=== PATIENT | female | born 2000 | race Caucasian/White ===

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

== ENCOUNTER 2020-06-18 17:31 | Emergency (ER) | payer MEDICAID, SELFPAY ==
[2020-06-18 17:39] VITALS: BP 112/74; PULSE 109; RESP 17; TEMP 37.1; O2SAT 98; BMI 20.1
[2020-06-18 18:03] VITALS: BP 112/72; PULSE 108; RESP 14; TEMP 36.9; O2SAT 99; BMI 20.1
[2020-06-18 18:08] LABS: UTC Strep Screen (Rapid) Positive (Negative)
--- NOTE | 2020-06-18 18:11 | HMH.EDUTC ---
[facility] [place] Disposition Clinical Impression: Strep throat UTI (urinary tract infection) Qualifiers: Urinary tract infection type: site unspecified Hematuria presence: without hematuria Qualified Code(s): N39.0 - Urinary tract infection, site not specified Disposition: Home, Self-Care Condition on Discharge: Good Instructions: Urinary Tract Infection, DI for Strep Throat Additional Instructions: Drink plenty of fluids. Take tylenol or ibuprofen for pain or fever. Take the medications as directed. Follow up with your regular doctor. GO TO THE ER FOR ANY WORSENING SYMPTOMS Throw your tooth brush away and get a new one. Prescriptions: Fluconazole [Diflucan 150mg tab] 150 mg PO ONCE #1 tab Transmission Status: Received by [employer] # Cefdinir [Omnicef 300mg Capsule] 300 mg PO BID #20 cap Transmission Status: Received by [employer] # Referrals: Chip Rivera MD [Primary Care Provider] - Time of Disposition: 18:17 Medical Decision Making - Medical Records Medical records reviewed: No: I reviewed the patient's medical records. - Tevin Inquiry Pt receiving controlled substance: No Vital Signs: 06/18/20 17:39 06/18/20 18:03 06/18/20 18:20 Temperature 98.7 F 98.4 F 98.4 F Temperature Source Oral Oral Pulse Rate 108 H Pulse Rate [Right] 109 H 108 H Respiratory Rate 17 14 14 Blood Pressure 112/72 Blood Pressure [Right Arm] 112/74 112/72 Blood Pressure Mean [Right Arm] 86 85 Blood Pressure Source [Right Arm] Automatic Cuff Blood Pressure Position [Right Arm] Sitting 02 Sat by Pulse Oximetry 98 99 Oxygen Delivery Method Room Air - Lab Data Lab Results 06/18/20 17:46: Strep Scn [facility] Positive A 06/18/20 18:01: Urine Color Yellow, Urine Appearance Clear, Urine pH 5.5, Ur Specific [place] 1.015, Urine Protein Negative, Urine Glucose (UA) 100, Urine Ketones Negative, Urine Blood Trace, Urine Nitrate Positive A, Urine Bilirubin Negative, Urine Urobilinogen 0.2, Ur Leukocyte Esterase Trace Orders (Tests/Meds): ED MEDICATIONS Discontinued Medications Generic Name Dose Route Start Last Admin Trade Name Freq PRN Reason Stop Dose Admin Penicillin G Benzathine 1,200,000 unit 06/18/20 18:07 06/18/20 18:11 Bicillin La 1,200,000 Units/2ml Syringe IM 06/18/20 18:08 Not Given ONCE ONE Protocol ORDERS Category Date Time Status Urine Culture Stat Micro 06/18/20 18:[address] [facility] [place] HPI - General Stated complaint: sore throat.cold chills Time Seen by Provider: 06/18/20 18:11 Mode of Arrival: Ambulatory Source of Information: Patient Limitations: No Limitations Description of Symptoms (Recalled from Triage Doc. by RN): PATIENT C/O SORE THROAT X2 DAYS. ALSO REQUESTING TEST FOR STDs HEENT Symptoms (Recalled from RN notes): Yes Resp Symptoms (Recalled from RN notes): No Skin Symptoms (Recalled from RN notes): No MS Symptoms (Recalled from RN notes): No Functional Status (Recalled from RN notes): WNL - History of Present Illness Provider Complaint: She c/o sore throat for the past 2 days. She has been having dysuria for the past 1 week. - Related Data Home Medications Medication Instructions Recorded Confirmed prenat.vits,zara,[id number] 1 tab PO DAILY 06/21/19 08/16/19 Previous Rx's Medication Instructions Recorded Nitrofurantoin Monohyd/M-Cryst 100 mg PO BID 5 Days #10 cap 07/19/19 [Macrobid 100 mg Capsule] ferrous sulfate 325 mg (65 mg 325 mg PO DAILY #30 tab 07/19/19 iron) tablet,delayed release Cefdinir [Omnicef 300mg Capsule] 300 mg PO BID #20 cap 06/18/20 Fluconazole [Diflucan 150mg tab] 150 mg PO ONCE #1 tab 06/18/20 Allergies Allergy/AdvReac Type Severity Reaction Status Date / Time No Known Drug Allergies Allergy Unknown -- Verified 08/16/19 14:33 - Worker's Comp Is this a Worker's Comp case?: No [facility] History - Hepatitis A Screen Drug use history?: N
[2020-06-18 18:12] LABS: Apearance,Urine Clear (Clear); Color,Urine Yellow (Yellow); PH,Urine 5.5 (5.0-8.5); Protein,Urine Negative (Negative); Specific Gravity, Urine 1.015 (1.005-1.030)
[2020-06-18 18:13] LABS: Bilirubin,Urine Negative (Negative); Blood, Urine Trace (Negative); Glucose,Urine (UA) 100 (Negative); Ketones,Urine Negative (Negative); UTC Leukocyte Esterase,Urine Trace (Negative); UTC Nitrate,Urine Positive (Negative); Urobilinogen,Urine 0.2 EU/dl (0.2)
[2020-06-18 18:20] VITALS: BP 112/72; PULSE 108; RESP 14; TEMP 36.9; O2SAT 99
[2020-06-23 08:13] LABS: Neisseria gonorrhoeae, NAA Positive (Negative)
== END 2020-06-18 18:25 | disposition home or self-care (01) ==
LOC: ER 17:41 → UTC 17:41
PROVIDERS: Emergency Provider Nurse Practitioner Family; PCP Family Medicine
DX: J02.0 Streptococcal pharyngitis (principal); N30.00 Acute cystitis without hematuria; F17.210 Nicotine dependence, cigarettes, uncomplicated
CPT/HCPCS: 81003; 87086; 87088; 87186; 87491; 87591; 87880; 99202

== ENCOUNTER 2020-08-15 17:35 | Emergency (ER) | payer MEDICAID, SELFPAY ==
[2020-08-15 17:52] VITALS: BP 108/76; PULSE 87; RESP 18; TEMP 36.7; O2SAT 100; BMI 20.1
[2020-08-15 18:05] LABS: UTC Pregnancy Test, Urine Negative (Negative)
--- NOTE | 2020-08-15 18:23 | HMH.EDUTC ---
[facility] [place] Disposition Clinical Impression: Negative test Disposition: Home, Self-Care Condition on Discharge: Good Instructions: In-Home Tests: Your Questions Answered, Home and Clinic Tests Additional Instructions: Repeat your test if you do not have your monthly cycle and are late *Return for blood test if you have another positive urine test Follow up with Family Doctor Follow up with OBGYN for further evaluation and testing Straight to ER if any life threatening symptoms Referrals: Chip Rivera MD [Primary Care Provider] - As needed Time of Disposition: 18:27 Medical Decision Making - Tevin Inquiry Pt receiving controlled substance: No Tevin was queried for this patient: No Vital Signs: 08/15/20 17:52 Temperature 98.1 F Temperature Source Oral Pulse Rate [Radial] 87 Respiratory Rate 18 Blood Pressure [Right Arm] 108/76 L Blood Pressure Mean [Right Arm] 86 Blood Pressure Source [Right Arm] Automatic Cuff Blood Pressure Position [Right Arm] Sitting 02 Sat by Pulse Oximetry 100 Oxygen Delivery Method Room Air - Lab Data Lab results reviewed: Yes: I reviewed the patient's lab results. Lab Results 08/15/20 17:46: Tst Clinic Negative [facility] [place] HPI - General Stated complaint: Wants to check for Time Seen by Provider: 08/15/20 18:23 Mode of Arrival: Ambulatory Source of Information: Patient Limitations: No Limitations Description of Symptoms (Recalled from Triage Doc. by RN): wants test. says she took a home test and saw a faint line and then had one negative. Last period was July 25 HEENT Symptoms (Recalled from RN notes): No Resp Symptoms (Recalled from RN notes): No Skin Symptoms (Recalled from RN notes): No MS Symptoms (Recalled from RN notes): No Functional Status (Recalled from RN notes): wnl - History of Present Illness Provider Complaint: Patient states that she wanted to come in and get a test States that she took a test at home and saw a faint line and then repeated the test and it was negative so she came in to have a test done here to see if it was positive or negative - Related Data Home Medications Medication Instructions Recorded Confirmed prenat.vits,zara,[id number] 1 tab PO DAILY 06/21/19 08/16/19 Previous Rx's Medication Instructions Recorded Nitrofurantoin Monohyd/M-Cryst 100 mg PO BID 5 Days #10 cap 07/19/19 [Macrobid 100 mg Capsule] ferrous sulfate 325 mg (65 mg 325 mg PO DAILY #30 tab 07/19/19 iron) tablet,delayed release Cefdinir [Omnicef 300mg Capsule] 300 mg PO BID #20 cap 06/18/20 Fluconazole [Diflucan 150mg tab] 150 mg PO ONCE #1 tab 06/18/20 Allergies Allergy/AdvReac Type Severity Reaction Status Date / Time No Known Drug Allergies Allergy Unknown -- Verified 08/16/19 14:33 - Worker's Comp Is this a Worker's Comp case?: No [facility] History - Hepatitis A Screen Drug use history?: No High risk sexual behaviors?: No History of sexually transmitted infection?: No Currently employed?: No Childcare worker?: No Do you have indoor plumbing?: Yes Do you have electricity?: Yes Attestation statement:: This patient has been screened for Hepatitis A risk factors. I have reviewed the patient's past medical history: Yes Medical History: Denies:: Cancer, Chronic Obstructive Pulmonary Disease (COPD), Diabetes Mellitus Type 1, Diabetes Mellitus Type 2, Hypertension, MRSA Other Surgeries: Yes: No Previous Surgery Amputation: No Fractures: No - Social History Smoking Status: Current every day smoker Tobacco Type: cigarettes Alcohol Intake: never Substance Use Type: denies use Occupational Status: other Housing: house Family Hx:: Unable to obtain ROS Obtained: Yes All systems reviewed & no additional complaints, Yes Systems reviewed as appropriate & no additional complaints - Constitutional Constitutional: Reports system reviewed an
[2020-08-15 18:30] VITALS: BP 108/76; PULSE 87; RESP 18; TEMP 36.7; O2SAT 100
== END 2020-08-15 18:31 | disposition home or self-care (01) ==
PROVIDERS: Emergency Provider Nurse Practitioner; PCP Family Medicine
DX: Z32.02 Encounter for pregnancy test, result negative (principal); F17.210 Nicotine dependence, cigarettes, uncomplicated
CPT/HCPCS: 81025; 99201

== ENCOUNTER 2021-04-12 22:05 | Emergency (ER) | payer MEDICAID, SELFPAY ==
[2021-04-12 22:16] VITALS: BP 121/76; PULSE 89; RESP 16; TEMP 36.5; O2SAT 97; BMI 20.1
[2021-04-12 22:26] LABS: Microscopic, Urine URINE MICROSCOPIC (MICROSCOPIC)
[2021-04-12 22:30] LABS: Appearance,Urine CLEAR (Clear); Blood, Urine Negative (Negative); Color,Urine YELLOW (Yellow); Glucose,Urine (UA) Negative (Negative); Ketones,Urine 3+ (Negative); Leukocyte Esterase,Urine TRACE (Negative); Nitrate,Urine Negative (Negative); Protein,Urine TRACE (Negative); Specific Gravity, Urine 1.025 (1.005-1.030); Urobilinogen,Urine 0.2 EU/dl (0.2)
[2021-04-12 22:31] LABS: Urine Pregnancy, HCG Qual. Positive (Negative)
[2021-04-12 22:32] LABS: Basophils % 0.5 % (0.1-2.0); Eosinophils # 0.1 K/mm3 (0.0-0.4); Eosinophils % 1.1 % (0.1-12.0); Hemoglobin 13.5 g/dL (12.2-16.2); Lymphocytes # 1.7 K/mm3 (0.7-4.5); Lymphocytes % 23.5 % (10-50); Mean Corpuscular HGB Conc 34.5 g/dL (31.8-35.4); Mean Corpuscular Hemoglobin 29.7 pg (27.0-31.2); Mean Corpuscular Volume 86.3 fl (81-99); Mean Platelet Volume 7.7 fl (7.4-10.4); Monocytes # 0.4 K/mm3 (0.1-1.0); Monocytes % 5.4 % (1.7-9.3); Neutrophils # 4.9 K/mm3 (1.8-7.8); Neutrophils % 69.4 % (37.0-80.0); Platelet Count 251 K/mm3 (142-424); Red Blood Count 4.53 M/mm3 (4.20-5.40); Red Cell Distribution Width 12.9 % (11.5-17.5)
[2021-04-12 22:33] LABS: Amylase 79 U/L (30-110)
[2021-04-12 22:34] LABS: Alanine Aminotransferase 12 U/L (12-78); Albumin Level 4.4 g/dl (3.5-5.0); Albumin/Globulin Ratio 1.5 (1.1-1.8); Alkaline Phosphatase 76 U/L (38-126); Aspartate Amino Transferase 27 U/L (14-36); Bilirubin,Total 0.6 mg/dl (0.2-1.3); Blood Urea Nitrogen 8 mg/dl (7-17); Calcium 9.1 mg/dl (8.4-10.2); Creatinine Clearance Estimated 141 mL/min (50-200); Estimated Glomerular Filt Rate 157 ml/min (>60); GFR (African American) 190 ML/MIN (>60); Globulin 2.9 g/dL (1.3-3.2); Glucose 98 mg/dl (74-100); Lipase 80 U/L (23-300); Total Protein,Serum 7.3 g/dl (6.3-8.2)
[2021-04-12 22:42] LABS: Amphetamine/Metha Screen,Urine Negative ng/ml (<1000)
[2021-04-12 22:43] LABS: Barbiturates Screen,Urine Negative ng/ml (<200)
[2021-04-12 22:44] LABS: Benzodiazepines Screen,Urine Negative ng/ml (<200); Cannabinoid Screen,Urine Negative ng/ml (<50)
[2021-04-12 22:45] LABS: Bilirubin,Urine Negative (Negative); Cocaine Screen,Urine Negative ng/ml (<300); Methadone Screen,Urine Negative ng/ml (<300)
[2021-04-12 22:46] LABS: Opiate Screen,Urine Negative ng/ml (<300)
[2021-04-12 22:47] LABS: Phencyclidine Screen,Urine Negative ng/ml (<25)
[2021-04-12 22:48] LABS: Bacteria,Urine 3+ /lpf; Squamous Epithelial Cell,Urine 20-50 #/hpf (0-5)
[2021-04-12 23:00] VITALS: BP 110/71; PULSE 68; RESP 17; O2SAT 100
[2021-04-12 23:08] LABS: Anion Gap 16.1 mEq/L (5-15); Chloride 98 mmol/L (98-107); Potassium 4.1 mmoL/L (3.5-5.1); Sodium 135 mmol/L (136-145)
[2021-04-12 23:09] LABS: Carbon Dioxide 25 mmol/L (22.0-30.0)
[2021-04-12 23:30] VITALS: BP 108/73; PULSE 69; RESP 16; O2SAT 100
[2021-04-13] VITALS: BP 108/75; PULSE 67; RESP 16; O2SAT 100
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
[2021-04-13 00:30] VITALS: BP 101/71; PULSE 85; RESP 17; O2SAT 100
[2021-04-13 01:00] VITALS: BP 119/76; PULSE 87; RESP 16; O2SAT 100
[2021-04-13 01:04] VITALS: BP 119/73; PULSE 81; RESP 17; TEMP 36.7; O2SAT 98
== END 2021-04-13 01:06 | disposition home or self-care (01) ==
PROVIDERS: Emergency Provider Emergency Medicine; PCP Family Medicine
DX: O21.0 Mild hyperemesis gravidarum (principal); F17.290 Nicotine dependence, other tobacco product, uncomplicated
CPT/HCPCS: 80053; 80305; 81001; 81025; 82150; 83690; 84702; 85025; 87086; 87088; 87186; 96365; 96366; 99282

== ENCOUNTER 2021-07-02 10:07 | Emergency (ER) | payer MEDICAID, SELFPAY ==
[2021-07-02 11:39] VITALS: BP 110/59; PULSE 85; RESP 14; TEMP 36.7; O2SAT 100; BMI 21.0
--- NOTE | 2021-07-02 11:50 | HMH.EDUTC ---
[facility] [place] Impression: Viral syndrome Qualifiers: Weeks of gestation: 22 weeks Qualified Code(s): Z3A.22 - 22 weeks gestation of Disposition: Home, Self-Care Condition on Discharge: Good Instructions: DI for Viral Syndrome, Preventing the Spread of Coronavirus Discharge Instructions Additional Instructions: Drink plenty of fluids. Take tylenol for pain or fever. Return if you begin to have difficulty breathing. Follow up with your regular doctor. GO TO THE ER FOR ANY WORSENING SYMPTOMS Quarantine until you know the results of your covid-19 test. If it is positive, the health department should call you and give you further instructions about your length of Quarantine and other things. Notify your school or workplace of your results and follow their instructions regarding return to work/school. Follow up with your ob doctor also. HER WORK EXCUSE NEEDS TO COUNT FOR LAST (07/01/2021) NIGHT ALSO. Referrals: Chip Rivera MD [Primary Care Provider] - Forms: Work/School Release Time of Disposition: 11:54 Medical Decision Making - Medical Records Medical records reviewed: No: I reviewed the patient's medical records. - Tevin Inquiry Pt receiving controlled substance: No Vital Signs: 07/02/21 11:39 07/02/21 11:58 Temperature 98.1 F 98.5 F Temperature Source Oral Pulse Rate 83 Pulse Rate [Left] 85 Respiratory Rate 14 18 Blood Pressure 112/63 Blood Pressure [Right Arm] 110/59 L Blood Pressure Mean [Right Arm] 76 02 Sat by Pulse Oximetry 100 - Lab Data Lab results reviewed: Yes: I reviewed the patient's lab results. Lab Results 07/02/21 12:02: Strep Scn Rapid Clinic Negative Orders (Tests/Meds): ORDERS Category Date Time Status Full Resp Panel w/COVID ([facility]) Routine Lab 07/02/21 11:31 Received Strep Screen Confirmation Stat Micro 07/02/21 12:02 [place] [facility] [place] - General Stated complaint: covid test Time Seen by Provider: 07/02/21 11:50 Mode of Arrival: Ambulatory Source of Information: Patient Limitations: No Limitations Description of Symptoms (Recalled from Triage Doc. by RN): pt c/o a cough, runny nose, and night sweats. HEENT Symptoms (Recalled from RN notes): Yes (nasal drainage) Resp Symptoms (Recalled from RN notes): Yes (cough) Skin Symptoms (Recalled from RN notes): No MS Symptoms (Recalled from RN notes): No Functional Status (Recalled from RN notes): na - History of Present Illness Provider Complaint: She reports 2 days of sore throat, cough, congestion, fever and feeling bad. She denies any known exposure to covid or other viruses. She does get strep throat at times. - Related Data Home Medications Medication Instructions Recorded Confirmed No Known Home Medications 04/12/21 04/12/21 Allergies Allergy/AdvReac Type Severity Reaction Status Date / Time No Known Drug Allergies Allergy Unknown -- Verified 08/16/19 14:33 - Worker's Comp Is this a Worker's Comp case?: No [facility] History - Hepatitis A Screen Drug use history?: No High risk sexual behaviors?: No History of sexually transmitted infection?: No Currently employed?: No Childcare worker?: No Do you have indoor plumbing?: Yes Do you have electricity?: Yes Attestation statement:: This patient has been screened for Hepatitis A risk factors. I have reviewed the patient's past medical history: Yes Medical History: Denies:: Cancer, Chronic Obstructive Pulmonary Disease (COPD), Diabetes Mellitus Type 1, Diabetes Mellitus Type 2, Hypertension, MRSA Other Surgeries: Yes: No Previous Surgery Amputation: No Fractures: No - Social History Smoking Status: Current every day smoker Tobacco Type: cigarettes Alcohol Intake: never Substance Use Type: denies use Occupational Status: other Housing: house Family Hx:: Unable to obtain ROS Obtained: Yes All systems reviewed & no additional complaints - Constitutional Constitutional
[2021-07-02 11:58] VITALS: BP 112/63; PULSE 83; RESP 18; TEMP 36.9
[2021-07-02 12:03] LABS: UTC Strep Screen (Rapid) Negative (Negative)
[2021-07-02 12:22] LABS: Adenovirus,PCR Not Detected (NotDetected); Bordetella Pertussis Not Detected (NotDetected); Chlamydophila Pneumoniae, PCR Not Detected (NotDetected); Coronavirus 19, PCR Not Detected (NotDetected); Coronavirus 229E Not Detected (NotDetected); Coronavirus NL63 Not Detected (NotDetected); Coronavirus OC43 Not Detected (NotDetected); Coronovirus HKU1,PCR Not Detected (NotDetected); Human Metapneumovirus Not Detected (NotDetected); Influenza A, PCR Not Detected (NotDetected); Influenza AH1, 2009 Not Detected (NotDetected); Influenza AH1, PCR Not Detected (NotDetected); Influenza AH3,PCR Not Detected (NotDetected); Influenza B, PCR Not Detected (NotDetected); Mycoplasma Pneumoniae, PCR Not Detected (NotDetected); Parainfluenza 1, PCR Not Detected (NotDetected); Parainfluenza 2, PCR Not Detected (NotDetected); Parainfluenza 3, PCR Not Detected (NotDetected); Parainfluenza 4, PCR Not Detected (NotDetected); Respiratory Syncytial Virus Not Detected (NotDetected)
[2021-07-03 06:08] LABS: Rhinovirus/Enterovirus Detected (NotDetected)
== END 2021-07-02 12:15 | disposition home or self-care (01) ==
PROVIDERS: Emergency Provider Nurse Practitioner Family; PCP Family Medicine
DX: B34.8 Other viral infections of unspecified site (principal); Z3A.22 22 weeks gestation of pregnancy
CPT/HCPCS: 87581; 87633; 87798; 87880; 99202; G0463

== ENCOUNTER 2022-03-21 16:18 | Emergency (ER) | payer MEDICAID, SELFPAY ==
[2022-03-21 16:27] VITALS: BP 101/70; PULSE 75; RESP 16; O2SAT 100; BMI 18.4
[2022-03-21 17:10] VITALS: BP 101/70; PULSE 75; RESP 16; TEMP 36.7; O2SAT 100; BMI 18.6
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
[2022-03-21 18:05] VITALS: BP 101/70; PULSE 75; RESP 16; TEMP 36.7; O2SAT 100
== END 2022-03-21 18:14 | disposition home or self-care (01) ==
PROVIDERS: Emergency Provider Nurse Practitioner Family; PCP Family Medicine
DX: S20.02XA Contusion of left breast, initial encounter (principal); F17.210 Nicotine dependence, cigarettes, uncomplicated; Z79.1 Long term (current) use of non-steroidal anti-inflammatories (NSAID); W50.0XXA Accidental hit or strike by another person, initial encounter
CPT/HCPCS: 99213; G0463

== ENCOUNTER 2022-05-05 15:27 | Outpatient (CLI) | payer MEDICAID, SELFPAY ==
[2022-05-05 16:13] VITALS: BMI 21.9
[2022-05-05 16:15] VITALS: BP 108/65; PULSE 80; RESP 18; TEMP 36.8; O2SAT 100; BMI 21.9
[2022-05-05 16:20] LABS: Microscopic, Urine URINE MICROSCOPIC (MICROSCOPIC)
[2022-05-05 16:26] LABS: Appearance,Urine CLEAR (Clear); Bilirubin,Urine Negative (Negative); Blood, Urine 3+ (Negative); Color,Urine YELLOW (Yellow); Glucose,Urine (UA) Negative (Negative); Ketones,Urine Negative (Negative); Leukocyte Esterase,Urine Negative (Negative); Nitrate,Urine Negative (Negative); Protein,Urine 1+ (Negative); Specific Gravity, Urine 1.015 (1.005-1.030); Urobilinogen,Urine 0.2 EU/dl (0.2)
[2022-05-05 16:45] LABS: Barbiturates Screen,Urine Negative ng/ml (<200)
[2022-05-05 16:46] LABS: Benzodiazepines Screen,Urine Negative ng/ml (<200)
[2022-05-05 16:47] LABS: Amphetamine/Metha Screen,Urine Negative ng/ml (<1000); Phencyclidine Screen,Urine Negative ng/ml (<25)
[2022-05-05 16:48] LABS: Opiate Screen,Urine Negative ng/ml (<300)
[2022-05-05 16:49] LABS: Cocaine Screen,Urine Negative ng/ml (<300)
[2022-05-05 16:50] LABS: Cannabinoid Screen,Urine Negative ng/ml (<50); Methadone Screen,Urine Negative ng/ml (<300)
[2022-05-05 17:03] LABS: Bacteria,Urine Trace /lpf; RBC,Urine 20-50 #/hpf (0-3); Squamous Epithelial Cell,Urine Occasional #/hpf (0-5); WBC,Urine Occasional #/hpf (0-3)
== END 2022-05-05 17:57 | disposition home or self-care (01) ==
LOC: OBOUT 15:30 → OB 15:30
PROVIDERS: PCP Obstetrics & Gynecology; Visit Provider Obstetrics & Gynecology
DX: O47.02 False labor before 37 completed weeks of gestation, second trimester (principal); Z3A.21 21 weeks gestation of pregnancy
CPT/HCPCS: 80305; 81001; G0463

== ENCOUNTER 2022-07-21 17:50 | Inpatient (IN) | payer MEDICAID, SELFPAY ==
[2022-07-21 15:25] VITALS: BP 106/76; PULSE 102; RESP 16; TEMP 36.3; O2SAT 99; BMI 22.6
--- NOTE | 2022-07-21 17:17 | EXP.HP ---
History of Present Illness *Admission Date: 07/21/22 *Reason for visit:: labor *History of present illness: She is a 22-year-old 4 para 3 at 32 weeks gestational age who has complaints of labor. She had nausea vomiting and diarrhea as well. She is having contractions every 2 to 3 minutes so we are going to admit her. She has received 1 dose of steroids and we will start magnesium sulfate. She did have 1 dose of Brethine and this did not seem to settle her contractions. She has had a liter bolus of fluid. PFSH [facility] Social History Smoking Status: Current every day smoker tobacco type: cigarettes alcohol intake: never substance use type: denies use current occupational status: unemployed Travel in the last 8 weeks: None housing: house Review of Systems Review of Systems Review of systems:: pertinent systems reviewed and negative unless documented below Meds Home Medications and Allergies Home Medications Medication Instructions Recorded Confirmed Type ibuprofen 600 mg tablet 600 mg PO Q6HP PRN Mild Pain #30 03/21/22 Rx tabs New Prescriptions to Start Prescriptions: Allergies Allergy/AdvReac Type Severity Reaction Status Date / Time No Known Drug Allergies Allergy Unknown -- Verified 08/16/19 14:33 Exam Data for Last 24 hours Vital signs and Labs for Last 24 Hours: Temp Pulse Resp BP Pulse Ox 97.4 F L 102 H 16 106/76 L 99 07/21/22 15:25 07/21/22 15:25 07/21/22 15:25 07/21/22 15:25 07/21/22 15:25 I & O for Last 24 hours: Intake & Output 07/19/22 07/20/22 07/21/22 07/22/22 11:59 11:59 11:59 11:59 Weight 124 lb Constitutional Constitutional: no acute distress *Routine HEENT Exam Head: Present normocephalic Eye: Present EOMI and PERRL ENT: Present mucous membranes moist *Routine Neck Exam Neck: Present supple and full ROM *Routine Respiratory Exam Respiratory: Absent accessory muscle use (good air entry bilaterally), wheezes or crackles *Routine Cardiovascular Exam Cardiovascular: Present RRR; Absent murmur *Routine Abdominal Exam Abdominal: Present soft and normoactive bowel sounds; Absent tenderness, rebound, guarding or mass *Routine Rectal Exam Rectal:: deferred *Routine Genitalia Exam Genitalia:: normal female Comment:: Her cervix is 2 cm 25% Station -3. *Routine Extremities Exam Extremities: Present full ROM; Absent cyanosis, edema or calf tenderness *Routine Skin Exam Skin: Present intact (good color) *Routine Neurological Exam Neurological: Present alert and oriented X3 Routine Psychiatric Exam Psychiatric: Present normal affect Detailed Rectal Exam Patient deferred: visual exam and digital exam Detailed Exam Patient deferred: external exam, groin exam and perineal exam Assessment and Plan *Assessment and plan (1) Hyperemesis gravidarum: Status: Acute Category: Medical Code(s): O21.0 - Mild hyperemesis gravidarum (2) labor in third trimester: Status: Acute Category: Medical Code(s): O60.03 - labor without delivery, third trimester Assessment and plan all Dx Assessment and Plan All Dx:: She is having regular contractions. Her cervix is 2 cm dilated and 25% effaced station -3. Nonstress test is reactive. We will go ahead and admit her and start her on magnesium sulfate. We will get an ultrasound in the morning since she measures up smaller than her dates. I have given her a dose of Celestone and she will get a second dose tomorrow.
[2022-07-21 18:05] LABS: Coronavirus 19, PCR Not Detected (NotDetected); Influenza A, PCR Not Detected (NotDetected); Influenza B, PCR Not Detected (NotDetected)
[2022-07-21 18:18] LABS: Basophils # 0.1 K/mm3 (0-0.2); Basophils % 0.7 % (0.1-2.0); Eosinophils # 0.1 K/mm3 (0.0-0.4); Eosinophils % 1.5 % (0.1-12.0); Hematocrit 36.6 % (37.0-47.0); Hemoglobin 11.6 g/dL (12.2-16.2); Lymphocytes % 12.9 % (10-50); Mean Corpuscular HGB Conc 31.6 g/dL (31.8-35.4); Mean Corpuscular Hemoglobin 28.3 pg (27.0-31.2); Mean Corpuscular Volume 89.5 fl (81-99); Mean Platelet Volume 8.3 fl (7.4-10.4); Monocytes # 0.3 K/mm3 (0.1-1.0); Neutrophils # 6.3 K/mm3 (1.8-7.8); Neutrophils % 80.9 % (37.0-80.0); Platelet Count 279 K/mm3 (142-424); Red Blood Count 4.09 M/mm3 (4.20-5.40); Red Cell Distribution Width 13.4 % (11.5-17.5); White Blood Count 7.8 K/mm3 (4.8-10.8)
[2022-07-21 18:34] LABS: Anion Gap 14.2 mEq/L (5-15); Blood Urea Nitrogen 5 mg/dl (7-17); Carbon Dioxide 23 mmol/L (22.0-30.0); Chloride 100 mmol/L (98-107); Creatinine Clearance Estimated 131 mL/min (50-200); Estimated Glomerular Filt Rate 125 ml/min (>60); GFR (African American) 151 ML/MIN (>60); Glucose 103 mg/dl (74-100); Magnesium 1.3 mg/dl (1.6-2.3); Potassium 3.2 mmoL/L (3.5-5.1); Sodium 134 mmol/L (136-145)
--- NOTE | 2022-07-22 07:00 | US_ITS ---
FINAL REPORT CLINICAL HISTORY: MEASURING SMALL FOR DATES FINDINGS: TRANSABDOMINAL ULTRASOUND There is a single live intrauterine gestation. Presentation is cephalic. Placenta is posterior, high, grade 2. Cardiac activity is confirmed at 117 bpm. Fetus is active and practice breathing is seen. SERGIO: 16.76 cm MEASUREMENTS: ULTRASOUND AGE: 32 weeks 4 days. GESTATION AGE: 32 weeks 3 days. ESTIMATED WEIGHT: 1923 g GROWTH PERCENTILE: 32% LMP percentile BPD: 8.2 cm corresponding with 32 weeks 6 days. OFD: 10.6 cm corresponding with 33 weeks 3 days. HC: 29.7 cm corresponding with 32 weeks 6 days. AC: 27.8 cm corresponding with 32 weeks 0 days. FL: 6.3 cm corresponding with 32 weeks 3 days. HC/AC: 1.07 CI: 77% FL/BPD: 77% FL/AC: 22% BREATHIN/2 MOVEMENT: 2/2 TONE: 2/2 FLUID VOLUME: 2/2 BPP SCORE: 8/8 IMPRESSION: Single living IUP with an ultrasound age of 32 weeks 4 days. BPP SCORE: 8/8 SERGIO: 16.76 cm Reviewed, Interpreted and Dictated by Gama Gaviria III, MD Transcribed by Rebekah Piedra Authenticated and [facility]
--- NOTE | 2022-07-22 07:29 | HMH.PHAINT1 ---
Pharmacy Intervention Comments: MEDICATION RECONCILIATION COMPLETED ON PATIENT USING EXTERNAL FILL HISTORY FROM PHARMACY. -SERA GREEN, CHAROD
[2022-07-22 07:38] LABS: Magnesium 7.3 mg/dl (1.6-2.3)
[2022-07-22 09:40] LABS: Microscopic, Urine URINE MICROSCOPIC (MICROSCOPIC)
[2022-07-22 09:42] LABS: Appearance,Urine TURBID (Clear); Bilirubin,Urine Negative (Negative); Blood, Urine 2+ (Negative); Color,Urine STRAW (Yellow); Glucose,Urine (UA) Negative (Negative); Ketones,Urine Negative (Negative); Leukocyte Esterase,Urine 1+ (Negative); Nitrate,Urine Negative (Negative); Protein,Urine Negative (Negative); Specific Gravity, Urine 1.025 (1.005-1.030); Urobilinogen,Urine 0.2 EU/dl (0.2)
[2022-07-22 09:54] LABS: Amorphous Sediment,Urine 4+ /lpf; Bacteria,Urine 4+ /lpf; Squamous Epithelial Cell,Urine Occasional #/hpf (0-5)
--- NOTE | 2022-07-22 14:02 | EXP.DC.SUM ---
General Admission date:: 07/21/22 Discharge date: 07/22/22 HPI HPI HPI: She is a 22-year-old 4 para 3 at 32 weeks gestational age who has complaints of labor. She had nausea vomiting and diarrhea as well. She is having contractions every 2 to 3 minutes so we are going to admit her. She has received 1 dose of steroids and we will start magnesium sulfate. She did have 1 dose of Brethine and this did not seem to settle her contractions. She has had a liter bolus of fluid. She was observed overnight and continued to have contractions about every 8 to 10 minutes. Today she has changed her cervix from 2 cm to 3 to 4 cm. An ultrasound today showed the fetus in the vertex presentation with normal fluid and average size. As result of the change in her cervix we are going to transfer her to [facility] to the care of Dr. Daniel Staton. Hospital Course Hospital Course Hospital Course: She received initially a bolus of fluid and 1 dose of Brethine. This did not stop her contractions so we elected to admit her and start her on magnesium sulfate. She received a 4 g bolus followed by 2 g an hour. She was observed overnight. She received her first dose of steroids on admission as well. Overnight she has continued to have an occasional contraction usually between 8 and 10 minutes but sometimes is often as 4 minutes. She is not tolerating the magnesium sulfate well and is extremely symptomatic. She feels very unwell as a result of the magnesium sulfate. Her magnesium level this morning was 7. As result of the changes in the cervix we are going to transfer her to [facility]. She will be admitted to Dr. Daniel Staton. We will plan to have her transferred by ambulance with magnesium running at 2 g an hour. She will receive 2 g of ampicillin prior to discharge as well. Exam Data for Last 24 hours Vital signs and Labs for Last 24 Hours: Temp Pulse Resp BP Pulse Ox 97.4 F L 102 H 16 106/76 L 99 07/21/22 15:25 07/21/22 15:25 07/21/22 15:25 07/21/22 15:25 07/21/22 15:25 Laboratory Results - last 24 hr 07/21/22 14:45: Urine Color Straw, Urine Appearance Turbid, Urine pH 6.0, Ur Specific [place] 1.025, Urine Protein Negative, Urine Glucose (UA) Negative, Urine Ketones Negative, Urine Blood 2+, Urine Nitrate Negative, Urine Bilirubin Negative, Urine Urobilinogen 0.2, Ur Leukocyte Esterase 1+ A, Urine RBC None, Urine WBC 3-5, Ur Squamous Epith Cells Occasional, Amorphous Sediment 4+, Urine Bacteria 4+ 07/21/22 17:52: WBC 7.8, RBC 4.09 L, Hgb 11.6 L, Hct 36.6 L, MCV 89.5, MCH 28.3, MCHC 31.6 L, RDW 13.4, Plt Count 279, MPV 8.3, Neut % (Auto) 80.9 H, Lymph % (Auto) 12.9, [place] % (Auto) 4.0, Eos % (Auto) 1.5, Baso % (Auto) 0.7, Neut # (Auto) 6.3, Lymph # (Auto) 1.0, [place] # (Auto) 0.3, Eos # (Auto) 0.1, Baso # (Auto) 0.1 07/21/22 17:52: Sodium 134 L, Potassium 3.2 L, Chloride 100, Carbon Dioxide 23, Anion Gap 14.2, BUN 5 L, Creatinine 0.60, Estimated Creat Clear 131, Estimated GFR 125, Est GFR ( Amer) 151, Glucose 103 H, Calcium 8.0 L, Magnesium 1.3 L 07/21/22 17:52: SARS-CoV-2 (PCR) Not detected, Influenza A Untype (PCR) Not detected, Influenza Type B (PCR) Not detected 07/22/22 06:37: Magnesium 7.3 H D 07/22/22 13:05: Magnesium 6.0 H D I & O for Last 24 hours: Intake & Output 07/20/22 07/21/22 07/22/22 07/23/22 11:59 11:59 11:59 11:59 Weight 124 lb Constitutional Constitutional: no acute distress *Routine Exam Comments: Her cervix has changed from 2 to 3 to 4 cm. She is 25%, soft and Station -2. Results Data Completed and Pending Labs on day of discharge: Labs from last 24 hours 07/22/22 07/22/22 07/21/22 13:05 06:37 17:52 WBC RBC Hgb Hct MCV MCH MCHC RDW Plt Count MPV Neut % (Auto) Lymph % (Auto) [place] % (Auto) Eos % (Auto) Baso % (Auto) Neut # (Auto) Lymph # (Auto) [place] # (Auto) Eos # (Auto) Ba
== END 2022-07-22 15:00 | disposition short-term general hospital (02) | DRG 831 ==
LOC: OBOUT 17:53 → OB 17:53
PROVIDERS: Admitting Provider Nurse Practitioner Obstetrics & Gynecology; PCP Family Medicine; Referring Provider Obstetrics & Gynecology; Visit Provider Nurse Practitioner Obstetrics & Gynecology
DX: O21.0 Mild hyperemesis gravidarum (principal); O60.03 Preterm labor without delivery, third trimester; Z3A.32 32 weeks gestation of pregnancy
CPT/HCPCS: 36415; 59025; 76811; 76819; 76820; 80048; 81001; 83735; 85025; 87086; 96365; 96372; C9803; G0463; J0595; J2405; U0003; U0005

== ENCOUNTER 2022-07-24 18:50 | Outpatient (CLI) | payer MEDICAID, SELFPAY ==
[2022-07-24 18:50] VITALS: BP 112/60; PULSE 75; RESP 18; TEMP 36.7; O2SAT 100; BMI 28.9
== END 2022-07-24 21:32 | disposition home or self-care (01) ==
LOC: OBOUT 20:41 → OB 20:41
PROVIDERS: Visit Provider Obstetrics & Gynecology
DX: O47.03 False labor before 37 completed weeks of gestation, third trimester (principal); Z3A.32 32 weeks gestation of pregnancy
CPT/HCPCS: 59025

== ENCOUNTER → 2023-08-07 10:48 | Outpatient (CLI) | payer SELFPAY | PROVIDERS: PCP Family Medicine; Visit Provider Nurse Practitioner | DX: Z02.1 Encounter for pre-employment examination (principal) ==

== ENCOUNTER 2023-12-30 21:03 | Outpatient (CLI) | payer OTHER, SELFPAY ==
[2023-12-30 17:52] LABS: Adenovirus,PCR Not Detected (NotDetected); Coronavirus 19, PCR Not Detected (NotDetected); Coronavirus 229E Not Detected (NotDetected); Coronavirus NL63 Not Detected (NotDetected); Coronavirus OC43 Not Detected (NotDetected); Coronovirus HKU1,PCR Not Detected (NotDetected); Human Metapneumovirus Not Detected (NotDetected); Influenza A, PCR Not Detected (NotDetected); Influenza AH1, 2009 Not Detected (NotDetected); Influenza AH1, PCR Not Detected (NotDetected); Influenza AH3,PCR Not Detected (NotDetected); Influenza B, PCR Not Detected (NotDetected); Parainfluenza 1, PCR Not Detected (NotDetected); Parainfluenza 2, PCR Not Detected (NotDetected); Parainfluenza 3, PCR Not Detected (NotDetected); Parainfluenza 4, PCR Not Detected (NotDetected); Respiratory Syncytial Virus Not Detected (NotDetected); Rhinovirus/Enterovirus Not Detected (NotDetected)
== END 2023-12-30 23:59 ==
LOC: LAB.DROPOF 21:03
PROVIDERS: PCP Nurse Practitioner Family; Visit Provider Nurse Practitioner Family
DX: R05.8 Other specified cough (principal); R50.9 Fever, unspecified; R21 Rash and other nonspecific skin eruption; Z20.828 Contact with and (suspected) exposure to other viral communicable diseases; J02.9 Acute pharyngitis, unspecified
CPT/HCPCS: 87070; 87632; 87635

== ENCOUNTER 2023-12-31 11:50 | Emergency (ER) | payer OTHER, SELFPAY ==
[2023-12-31 13:28] VITALS: BP 0/0; PULSE 0; RESP 0; TEMP -17.7; TEMP 0
== END 2023-12-31 13:29 | disposition left against medical advice (07) ==
PROVIDERS: Emergency Provider Nurse Practitioner
DX: Z53.21 Procedure and treatment not carried out due to patient leaving prior to being seen by health care provider (principal)

== ENCOUNTER 2024-06-23 10:06 | Emergency (ER) | payer OTHER, SELFPAY ==
--- NOTE | 2024-06-23 10:39 | EXP.UTC ---
Discharge Plan Disposition Patient Disposition: Home, Self-Care Condition: Good Prescriptions Prescriptions: New amoxicillin 500 mg tablet 500 mg PO TID 10 Days Qty: 30 0RF [id number] [Bromfed DM] 2-30-10 mg/5 mL Syrup 5 ml PO Q6H PRN (Reason: Cough) Qty: 240 0RF Referrals Follow up/Referrals: Chip Rivera MD [Primary Care Provider] - See instructions Activity Restrictions/Add. Instructions Additional Instructions/Restrictions: Drink plenty of fluids. Take tylenol or ibuprofen for pain or fever. Take the medications as directed. Follow up with your regular doctor. GO TO THE ER FOR ANY WORSENING SYMPTOMS Clinical Impressions Clinical Impression: Pharyngitis, Acute viral syndrome Stand Alone Forms Stand Alone Forms: Work/School Release Instructions Patient Instructions: DI for Viral Syndrome Print Language Print Language: Welsh Discharge ED Provider: Wilfred Paniagua [facility] General Stated complaint: fever, headache, sore throat Time Seen by Provider: 06/23/24 10:39 Related Data Previous Rx's ?Medication ?Instructions ?Recorded amoxicillin 500 mg tablet 500 mg PO TID 10 days #30 tabs 06/23/24 zbhfnfllfoqteel-yfdioayoesiyvec-NV 5 ml PO Q6H PRN Cough #240 mL 06/23/24 2 mg-30 mg-10 mg/5 mL oral syrup (Bromfed DM) Allergies Allergy/AdvReac Type Severity Reaction Status Date / Time No Known Drug Allergies Allergy Unknown -- Verified 12/30/23 13:04 [facility] Disclaimer: The information contained in this section may have been updated after the patient was seen, as this information can be updated by other users. Medical History (Updated 06/23/24 @ 11:30 by Wilfred Paniagua APRN) Anxiety Contusion of left breast Viral syndrome Hyperemesis gravidarum Negative test Surgical History (Updated 12/30/23 @ 13:04 by Marcy Watts) No significant past surgical history Family History Other No significant family history Social History Smoking Status: Former smoker alcohol intake: never substance use type: denies use current occupational status: other Travel in the last 8 weeks: None adopted: No caregiver/support person: No foster care: No housing: house marital status: single ROS Obtained: Yes All systems reviewed & no additional complaints except as documented Constitutional Constitutional: Reports chills and Reports fever(s) Eyes Eyes: Denies eye discharge ENT Ears, Nose, Mouth, and Throat: Reports as per HPI Cardiovascular Cardiovascular: Denies chest pain Respiratory Respiratory: Denies chest congestion and Reports cough Gastrointestinal Gastrointestingal: Reports nausea; Denies abdominal pain, constipation, cramping, diarrhea or vomiting Musculoskeletal Musculoskeletal: Denies arthralgias Integumentary/Breasts Skin/Breast: Denies rash Neurologic Neurologic: Denies paresthesias Physical Exam General General appearance: alert and in no apparent distress Head Head exam: atraumatic, normocephalic and normal inspection Eye Eye exam: Present normal appearance, PERRL and EOMI ENT ENT exam: Present mucous membranes moist and normal external ear exam Expanded ENT Exam TM/Canal exam: Bilateral TM: erythema and bulging Nose exam: Absent sinus tenderness Mouth exam: Present normal external inspection; Absent drooling Teeth exam: Present normal inspection Throat exam: Present tonsillar erythema, tonsillomegaly and tonsillar exudate Neck Neck exam: Present normal inspection, full ROM and trachea midline; Absent tenderness, meningismus or lymphadenopathy Chest Chest inspection: Present normal inspection and symmetric chest wall rise; Absent tenderness Respiratory Respiratory exam: Present normal lung sounds bilaterally; Absent respiratory distress, wheezes, stridor or accessory muscle use Cardiovascular Cardiovascular exam: Present regular rate and normal rhythm; Absent systolic murmur or diastolic murmur Abdominal Exam Abdominal exam: Present soft and normal bowel sounds; Absent distention, tenderness, guarding, rebound or rigidity Extremities Exam Extremities exam: Present normal inspection and normal capillary refill; Absent calf tenderness Back Exam Back exam: Present normal inspection and full ROM; Absent tenderness, CVA tenderness (R) or CVA tenderness (L) Neurological Exam Neurological exam: Present alert, oriented X3 and CN II-XII intact Psychiatric Psychiatric exam: Present normal affect and normal mood Skin Skin exam: Present warm, dry, intact and normal color Medical Decision Making Medical Records Medical records reviewed: No I reviewed the patient's medical records. Tevin Inquiry Pt receiving controlled substance: No Lab Data Lab results reviewed: Yes I reviewed the patient's lab results.
[2024-06-23 10:43] VITALS: BP 107/71; PULSE 105; RESP 20; TEMP 37.1; O2SAT 98; BMI 21.4
[2024-06-23 10:49] LABS: UTC Strep Screen (Rapid) Negative (Negative)
[2024-06-23 11:31] VITALS: BP 107/71; PULSE 105; RESP 18; TEMP 37.1; O2SAT 98
== END 2024-06-23 11:40 | disposition home or self-care (01) ==
PROVIDERS: Emergency Provider Nurse Practitioner Family; PCP Family Medicine
DX: U07.1 COVID-19 (principal); J02.9 Acute pharyngitis, unspecified; R05.9 Cough, unspecified; R51.9 Headache, unspecified
CPT/HCPCS: 87635; 87880; 99212; 99214; G0463

== ENCOUNTER 2024-08-24 09:14 | Emergency (ER) | payer OTHER, SELFPAY ==
[2024-08-24 09:15] VITALS: BP 122/79; PULSE 77; RESP 12; TEMP 36.7; O2SAT 100; BMI 21.9
--- NOTE | 2024-08-24 09:29 | PC.NURSE ---
Dr. Dorsey at [facility] for pt eval
[2024-08-24 09:30] VITALS: BP 118/85; PULSE 85; O2SAT 100
[2024-08-24] MEDS: ALUMINUM/MAGNESIUM/SIMETHICONE 30ML UDC 30 ML PO (09:51)
--- NOTE | 2024-08-24 09:51 | HMH.EDGENADL ---
Discharge Plan Disposition Patient Disposition: Xfer Short-Term Hosp Chief Complaint: Abdominal Pain Prescriptions Prescriptions: No Action No Known Home Medications Referrals Follow up/Referrals: Chip Rivera MD [Primary Care Provider] - See instructions Clinical Impressions Clinical Impression: Hydronephrosis with obstructing calculus Stand Alone Forms Stand Alone Forms: Transfer Record - ED Instructions Patient Instructions: DI for Acute Abdominal Pain Print Language Print Language: Zambian Discharge ED Provider: Richard Dorsey General Adult HPI General Chief complaint: Abdominal Pain Stated complaint: abd pain, back pain, vomiting Time Seen by Provider: 08/24/24 09:31 Mode of Arrival: Ambulatory Source of Information: Patient Limitations: No Limitations Description of Symptoms (Recalled from ER Triage Doc. by RN): pt presents to ED with c/o abdominal pain, lower back pain. pt reports symptoms began this am. she awoke with pain this am, pt reports no diarrhea but vomitting this am. History of Present Illness HPI narrative: Please note that above description of symptoms, in this electronic medical record under categorization of recalled from ER triage doctor by RN are reflective of an initial nursing assessment, however, is not reflective of my full history and physical exam that was personally taken and clarified. Consequentially, this preceding description of symptoms, which may include the patient's categorized chief complaint in the EMR, do not reflect my personal clinical impression, and the ultimate description of history of present illness and patient stated complaints should be deferred to this section of the note. Unless stated otherwise or congruent with this section of the note, additional signs, symptoms, or incongruence should be interpreted as inaccurate with my clinical impression. Related Data Home Medications ?Medication ?Instructions ?Recorded ?Confirmed No Known Home Medications 08/24/24 08/24/24 Allergies Allergy/AdvReac Type Severity Reaction Status Date / Time No Known Drug Allergies Allergy Unknown -- Verified 08/24/24 10:02 [facility] Disclaimer: The information contained in this section may have been updated after the patient was seen, as this information can be updated by other users. Medical History (Updated 08/24/24 @ 12:26 by Richard Dorsey MD) Anxiety Contusion of left breast Viral syndrome Hyperemesis gravidarum Negative test Surgical History (Updated 12/30/23 @ 13:04 by Marcy Watts) No significant past surgical history Family History Other No significant family history Social History Smoking Status: Current every day smoker alcohol intake: never substance use type: denies use current occupational status: other Travel in the last 8 weeks: None adopted: No caregiver/support person: No foster care: No housing: house marital status: single Other Medical History Have you received the Flu Vaccine for this season: No Have you received the Pneumonia Vaccine: No ROS Obtained: Yes All systems reviewed & no additional complaints except as documented Physical Exam General General appearance: alert and in no apparent distress Head Head exam: atraumatic and normocephalic Eye Eye exam: Present normal appearance, PERRL and EOMI Neck Neck exam: Present normal inspection, full ROM and trachea midline Respiratory Respiratory exam: Absent respiratory distress, wheezes, stridor, accessory muscle use or prolonged expiratory phase Cardiovascular Cardiovascular exam: Present regular rate, normal rhythm and other (Pulses equal symmetric in upper and lower extremities) Abdominal Exam Abdominal exam: Present soft; Absent distention, tenderness, guarding, rebound, rigidity or pulsatile mass Extremities Exam Extremities exam: Absent edema Neurological Exam Neurological exam: Present alert, oriented X3 and CN II-XII intact; Absent motor sensory deficit Skin Skin exam: Present warm and dry; Absent diaphoresis or erythema Medical Decision Making Medical Records Medical records reviewed: Yes I reviewed the patient's medical records. Screening: Per USPSTF and CDC recommendations, given the prevalence of disease in our region, it is our hospital?s policy to screen for HIV and viral Hepatitis for all patients aged 18 and over and those with ongoing risk factors. Tevin Inquiry Pt receiving controlled substance: No Tevin was queried for this patient: No Vital Signs: 08/24/24 09:15 08/24/24 09:30 08/24/24 10:00 Temperature 98.0 F Temperature Source Oral Pulse Rate 85 82 Pulse Rate [Left Radial] 77 Respiratory Rate 12 Blood Pressure 118/85 111/82 Blood Pressure [Right Arm] 122/79 Blood Pressure Mean [Right Arm] 93 02 Sat by Pulse Oximetry 100 100 99 Oxygen Delivery Method Room Air Room Air Room Air 08/24/24 11:39 08/24/24 12:15 Temperature Temperature Source Pulse Rate 59 L 60 Pulse Rate [Left Radial] Respiratory Rate Blood Pressure 111/73 111/73 Blood Pressure [Right Arm] Blood Pressure Mean [Right Arm] 02 Sat by Pulse Oximetry 100 100 Oxygen Delivery Method Room Air Room Air Lab Data Lab Results 08/24/24 09:26: WBC 11.8 H, RBC 5.13, Hgb 15.7, Hct 45.1, MCV 87.9, MCH 30.7, MCHC 34.9, RDW 13.2, Plt Count 287, MPV 7.5, Neut % (Auto) 82.4 H, Lymph % (Auto) 12.1, [place] % (Auto) 4.2, Eos % (Auto) 0.4, Baso % (Auto) 0.9, Neut # (Auto) 9.7 H, Lymph # (Auto) 1.4, [place] # (Auto) 0.5, Eos # (Auto) 0.1, Baso # (Auto) 0.1, Sodium 138, Potassium 4.7, Chloride 106, Carbon Dioxide 26, Anion Gap 10.7, BUN 15, Creatinine 0.90, Estimated Creat Clear 83, Estimated GFR 77, Est GFR ( Amer) 93, Glucose 112 H, Calcium 9.8, Total Bilirubin 0.5, AST 32, ALT 19, Alkaline Phosphatase 76, Total Protein 7.8, Albumin 4.9, Globulin 2.9, Albumin/Globulin Ratio 1.7, Lipase 170, HCG, Quant < 2, HIV 1&2 Antibody Rapid Nonreactive 08/24/24 10:32: Urine Color Yellow, Urine Appearance Clear, Urine pH 6.0, Ur Specific [place] >= 1.030, Urine Protein 2+ A, Urine Glucose (UA) Negative, Urine Ketones Trace, Urine Blood 3+ A, Urine Nitrate Negative, Urine Bilirubin Negative, Urine Urobilinogen 0.2, Ur Leukocyte Esterase Negative, Urine RBC 10-20, Urine WBC 3-5, Ur Squamous Epith Cells Occasional, Urine Bacteria Trace 08/24/24 09:26 08/24/24 09:26 Orders (Tests/Meds): ED MEDICATIONS Discontinued Medications Generic Name Dose Route Start Last Admin Trade Name Freq PRN Reason Stop Dose Admin Acetaminophen 1,000 mg 08/24/24 09:42 08/24/24 09:52 Acetaminophen 500mg Tab PO 08/24/24 09:43 1,000 mg ONCE ONE Administration Al Hydrox/Mg Hydrox/Simethicone 30 ml 08/24/24 09:42 08/24/24 09:51 Aluminum/Magnesium/Simethicone 30ml Udc PO 08/24/24 09:43 30 ml ONCE ONE Administration Iopamidol 75 ml 08/24/24 11:27 08/24/24 11:28 Iopamidol-370 (76%);100ml Bottle IV 08/24/24 11:28 75 ml ONCE ONE Administration Ketorolac Tromethamine 15 mg 08/24/24 09:42 08/24/24 09:52 Ketorolac 30mg/Ml Vial IV 08/24/24 09:43 15 mg ONCE ONE Administration Ondansetron HCl 4 mg 08/24/24 09:42 08/24/24 09:52 Ondansetron 4mg/2ml Vial IV 08/24/24 09:43 4 mg ONCE ONE Administration Sodium Chloride 10 ml 08/24/24 11:27 08/24/24 11:28 Sodium Chloride 0.9% 10ml Syr (Rad Only) IV 08/24/24 11:28 10 ml ONCE ONE Administration ORDERS Category Date Time Status CT abdomen pelvis w con Stat Cat Scan 08/24/24 11:05 Taken CBC w/Auto Diff [Complete Blood Count Auto Diff] Stat Lab 08/24/24 09:26 Completed CMP [Comprehensive Metabolic Panel] Stat Lab 08/24/24 09:26 Completed HCG,Quantitative Stat Lab 08/24/24 09:26 Completed HIV (1&2) Antibody Rapid Stat Lab 08/24/24 09:26 Completed Hep C Ab with Reflex to RNA Stat Lab 08/24/24 09:26 Received Lipase Stat Lab 08/24/24 09:26 Completed UA [Urinalysis and Microscopic] Stat Lab 08/24/24 10:32 Completed Medical Decision Narrative: 24-year-old female with no relevant medical history currently on Depo shot for control presenting with abdominal pain. Patient states she woke up with pain this morning, 08/24 early in the morning. Had epigastric/periumbilical abdominal pain. Took ibuprofen, went back to sleep. Woke up shortly thereafter with bilateral flank pain as well as periumbilical pain that was moderate to severe, associated with 1 episode of nonbloody, nonbilious vomiting. Denies diarrhea. No fevers or chills, urinary symptoms, abnormal vaginal discharge or bleeding, or any other concerns. Pain is currently mild to moderate, does not radiate. No sick contact she knows of. History was obtained via conversation with patient. On arrival, patient hemodynamically stable, alert, oriented x4, appropriate, GCS 15, moving all extremities spontaneously, pupils equal and reactive to light. Full physical exam performed and significant for very well-appearing female who is in no acute distress. Abdomen is soft, nontender on my exam. No associated distention. No overlying skin changes. No flank tenderness. Normotensive, nontachycardic. Differential includes PUD, gastritis, enteritis, gastroenteritis, pancreatitis, SBO, colitis, diverticulitis, nephrolithiasis, UTI, , cholecystitis, choledocholithiasis, appendicitis, hepatitis, torsion, aortic pathology, mesenteric ischemia among others. Patient placed on continuous cardiac monitoring and continuous pulse ox with initial blood pressure 111/82, heart rate 82, saturation 99% on room air. Patient was given Toradol, acetaminophen, Zofran, Maalox for symptomatic management and correction of underlying abnormalities. Workup independently interpreted and significant for overall nonactionable CBC, patient does have mild leukocytosis 11.8 with neutrophilic predominance. Chemistry nonactionable. LFTs normal, hCG negative, lipase negative. Urinalysis with isolated blood and protein, no other evidence of UTI. Conversation had with patient regarding utility of CT scan. On reevaluation, patient states that she has absolutely no pain, feeling 100% better with no acute symptoms. Given largely negative workup, complete improvement with meds, utility of CT scan was discussed with patient including risks and benefits of radiation and obtaining scan. Ultimately, patient opting for CT scan to further elucidate cause of symptoms. I feel this is reasonable, especially in the setting of isolated hematuria/proteinuria and not currently on menstrual period or spotting. On independent interpretation of imaging, patient has bilateral hydronephrosis, worse on the left. Hydroureter and hydronephrosis with associated 9 mm stone distal in the UVJ. See radiology read for full review of final results. On reevaluation, patient resting comfortably, still has no pain. [facility] was contacted and Dr. Mejia graciously accepted patient. Because patient high risk for clinical decompensation if discharged, deemed appropriate for transfer and inpatient admission. Results were relayed to patient who voiced understanding and patient was agreeable to transfer, inpatient admission, and management. [employer] disclaimer Much of this encounter note is an electronic public health officer spoken language to printed text. Electronic public health officer of the spoken language may permit errors. Although I have reviewed the note, some errors may still exist. Critical Care Critical Care Time Critical Care Time: No
[2024-08-24 09:52] LABS: Albumin Level 4.9 g/dl (3.5-5.0); Chloride 106 mmol/L (98-107)
[2024-08-24] MEDS: ACETAMINOPHEN 500MG TAB 1000 MG PO (09:52)
[2024-08-24] MEDS: KETOROLAC 30MG/ML VIAL 15 MG IV (09:52)
[2024-08-24] MEDS: ONDANSETRON 4MG/2ML VIAL 4 MG IV (09:52)
[2024-08-24 09:53] LABS: Basophils # 0.1 K/mm3 (0-0.2); Basophils % 0.9 % (0.1-2.0); Eosinophils # 0.1 K/mm3 (0.0-0.4); Eosinophils % 0.4 % (0.1-12.0); Hematocrit 45.1 % (37.0-47.0); Hemoglobin 15.7 g/dL (12.2-16.2); Lymphocytes # 1.4 K/mm3 (0.7-4.5); Lymphocytes % 12.1 % (10-50); Mean Corpuscular HGB Conc 34.9 g/dL (31.8-35.4); Mean Corpuscular Hemoglobin 30.7 pg (27.0-31.2); Mean Corpuscular Volume 87.9 fl (81-99); Mean Platelet Volume 7.5 fl (7.4-10.4); Monocytes # 0.5 K/mm3 (0.1-1.0); Monocytes % 4.2 % (1.7-9.3); Neutrophils # 9.7 K/mm3 (1.8-7.8); Neutrophils % 82.4 % (37.0-80.0); Platelet Count 287 K/mm3 (142-424); Potassium 4.7 mmoL/L (3.5-5.1); Red Blood Count 5.13 M/mm3 (4.20-5.40); Red Cell Distribution Width 13.2 % (11.5-17.5); Sodium 138 mmol/L (136-145); White Blood Count 11.8 K/mm3 (4.8-10.8)
[2024-08-24 09:55] LABS: Alanine Aminotransferase 19 U/L (12-78); Alkaline Phosphatase 76 U/L (38-126); Aspartate Amino Transferase 32 U/L (14-36); Bilirubin,Total 0.5 mg/dl (0.2-1.3); Blood Urea Nitrogen 15 mg/dl (7-17); Creatinine Clearance Estimated 83 mL/min (50-200); Estimated Glomerular Filt Rate 77 ml/min (>60); GFR (African American) 93 ML/MIN (>60)
[2024-08-24 09:56] LABS: Albumin/Globulin Ratio 1.7 (1.1-1.8); Anion Gap 10.7 mEq/L (5-15); Calcium 9.8 mg/dl (8.4-10.2); Carbon Dioxide 26 mmol/L (22.0-30.0); Globulin 2.9 g/dL (1.3-3.2); Glucose 112 mg/dl (74-100); Lipase 170 U/L (23-300); Total Protein,Serum 7.8 g/dl (6.3-8.2)
[2024-08-24 10:00] VITALS: BP 111/82; PULSE 82; O2SAT 99
[2024-08-24 10:16] LABS: HCG,Quantitative < 2 mIU/ml (0-5.42)
[2024-08-24 10:35] LABS: Microscopic, Urine URINE MICROSCOPIC (MICROSCOPIC)
[2024-08-24 10:40] LABS: Appearance,Urine CLEAR (Clear); Bilirubin,Urine Negative (Negative); Blood, Urine 3+ (Negative); Color,Urine YELLOW (Yellow); Glucose,Urine (UA) Negative (Negative); Ketones,Urine TRACE (Negative); Leukocyte Esterase,Urine Negative (Negative); Nitrate,Urine Negative (Negative); Protein,Urine 2+ (Negative); Specific Gravity, Urine >= 1.030 (1.005-1.030); Urobilinogen,Urine 0.2 EU/dl (0.2)
[2024-08-24 10:49] LABS: Bacteria,Urine Trace /lpf; Squamous Epithelial Cell,Urine Occasional #/hpf (0-5)
--- NOTE | 2024-08-24 11:00 | PC.NURSE ---
pt given water for PO challenge
--- NOTE | 2024-08-24 11:05 | CT_ITS ---
FINAL REPORT TECHNIQUE: After the administration of intravenous contrast, axial images were obtained through the abdomen and pelvis by computed tomography. The study was performed with techniques to keep radiation dose as low as reasonably achievable, (ALARA). Individual dose reduction techniques using automated exposure control or adjustment of mA and/or kV according to the patient's size were employed. CLINICAL HISTORY: bilateral flank pain, isolated hematuria FINDINGS: Abdomen: The lung bases are clear. The liver parenchyma is homogeneous. The gallbladder is present. The spleen, pancreas, and adrenals are unremarkable. There is a right extrarenal pelvis. There is moderate left hydronephrosis and hydroureter secondary to an obstructing 10 mm stone in the distal left ureter. The aorta is normal in caliber. There is no free fluid or adenopathy. Pelvis: The appendix is not clearly seen. The uterus is anteverted. The urinary bladder is decompressed. There is no free fluid or adenopathy. IMPRESSION: Moderate left hydronephrosis and hydroureter secondary to an obstructing distal left ureteral stone. Reviewed, Interpreted and Dictated by Jorge Toledo MD Transcribed by Merle Jones Authenticated and [facility]
[2024-08-24] MEDS: IOPAMIDOL-370 (76%);100ML BOTTLE 75 ML IV (11:28)
[2024-08-24] MEDS: SODIUM CHLORIDE 0.9% 10ML SYR (RAD ONLY) 10 ML IV (11:28)
[2024-08-24 11:39] VITALS: BP 111/73; PULSE 59; O2SAT 100
--- NOTE | 2024-08-24 11:39 | PC.NURSE ---
Rounded on pt. No needs voiced at this time. Call light remains within reach.
--- NOTE | 2024-08-24 11:49 | PC.NURSE ---
Dr. Dorsey at [facility] to update pt on results and POC
--- NOTE | 2024-08-24 11:57 | PC.NURSE ---
Spoke to [facility] regarding tx of pt to [facility]. They advised they will start the tx process and call us back with an update
[2024-08-24 11:59] LABS: HIV (1&2) Antibody Rapid NONREACTIVE (NONREACTIVE)
--- NOTE | 2024-08-24 12:13 | PC.NURSE ---
Dr. Dorsey speaking with urology at [place]
[2024-08-24 12:15] VITALS: BP 111/73; PULSE 60; O2SAT 100
--- NOTE | 2024-08-24 12:24 | PC.NURSE ---
Pt accepted to [facility] by Dr. Montenegro
[2024-08-24 12:52] VITALS: BP 111/73; PULSE 60; RESP 16; TEMP 36.7; O2SAT 97
--- NOTE | 2024-08-24 17:26 | PC.NURSE ---
this rn received a call from [facility] stating that the pt has not shown up yet. pt was discharged from this ed approx 1300. pt did leave with IV access in right ac. prior to pt leaving, IV was wrapped in koband and instructed pt not to mess with IV and to leave it covered. pt voiced understanding. pt stated that she was going to go straight to [facility]. this rn attempted to call both numbers listed in patients chart, no answer and no voicemail available. call made to powerhouse operator to let her know of situation. jai sher called and informed of situation with pt, reguarding peripheral IV access. dispatch given pts home address, and states that they will have someone go check on her.
[2024-08-25 05:27] LABS: HCV Ab Non Reactive (Non Reactive)
== END 2024-08-24 12:53 | disposition short-term general hospital (02) ==
PROVIDERS: Emergency Provider Emergency Medicine; PCP Family Medicine
DX: N13.2 Hydronephrosis with renal and ureteral calculous obstruction (principal)
CPT/HCPCS: 74177; 80053; 81001; 83690; 84702; 85025; 86803; 87389; 96374; 96375; 99285; J1885; J2405; Q9967

== ENCOUNTER 2025-06-17 15:55 | Emergency (ER) | payer OTHER, SELFPAY ==
--- OUTSIDE RECORDS SUMMARY | 2025-06-05 16:20 | XMS_ITS | Encounter Summary ---
Author Organization Healthcare Address [address] [place] [address] Care Team Providers Care Flight Superintendent Name Role Phone Provider, [facility] Primary Care Provid er Unavailable Reason for Visit * Reason Comments Vaginitis/Bacterial Vaginosis Poss yeast infectionHaving itching, irritation, thick white dischargeDenies change of odor Has taken monostat OTC and is not helping Had tubal in March--has not had period since. Gaining weight quickly Encounter Details Date Type Department Care Team (Late st Contact Info) Description 06/05/2025 4:20 PM EDT Office Visit Obstetrics & Gynecology [address] [place] [address] Radha Velasquez, AVIATION SAFETY EQUIPMENT TECHNICIAN, CNM [address] [facility] [address] [place] [address] Vaginal itching (Primary Dx); Weight gain; Screening examination for STD (sexually transmitted disease); Missed menses Social History Tobacco Use Types Packs/Day Years Used Date Smoking Tobacco: Never Smokeless Tobacco: Never Alcohol Use Standard Drinks/Week Comments Not Currently 0 (1 standard drink = 0.6 oz pur e alcohol) PHQ-2 Answer Date Recorded Patient Health Questionnaire-2 Score 0 06/05/2025 Excel Depression Scale Answer Date Recorded Excel Depression Scale Total 2 01/06/2022 The thought of harming myself has occurred to me . Never 01/06/2022 PHQ-9 Answer Date Recorded Patient Health Questionnaire-9 Score 0 04/13/2025 CAGE ASSESSMENT Answer Date Recorded Cage unable to access Not on file 07/25/2022 Cage max number of drinks Not on file 2021 Cage Beverages a week Not on file 07/25/2022 Have you ever felt you should CUT down on your d rinking? 0 07/25/2022 Have you been ANNOYED by people criticizing your drinking? 0 07/25/2022 Have you felt GUILTY about your drinking? 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 0 07/25/2022 CAGE Questionnaire Score 0 022 Comments No Sex and Gender Information Value Date Recorded Sex Assigned at Female 05/02/2021 9:17 AM EDT Legal Sex Female 7:04 PM EDT Gender Identity Female 05/02/2021 9:17 AM EDT Sexual Orientation Straight 05/02/2021 9: 17 AM EDT documented as of this encounter Last Filed Vital Signs Vital Sign Reading Time Taken Comments Blood Pressure 116/78 06/05/2025 3:57 PM EDT Pulse 87 06/05/2025 3:57 PM EDT Temperature 36.8 C (98.3 F) 06/05/2025 3:57 PM EDT Respiratory Rate - - Oxygen Saturation 97% 06/05/2025 3:57 PM EDT Inhaled Oxygen Concentration - - Weight 61.6 kg (135 lb 12.9 oz) 06/05/2025 3:57 PM EDT Height 157.5 cm (5' 2 ) 06/05/2025 3:57 PM EDT Body Mass Index 24.84 06/05/2025 3:57 PM EDT documented in this encounter Functional Status * Over the past 2 weeks, how often have you been bothered by any of the following problems? Question Answer Date of Assessment Author Little interest or pleasure in doing things Not at all 06/05/2025 3:58 PM EDT Martha Moran RN Feeling down, depressed, or hopeless Not at all 06/05/2025 3:58 PM EDT Martha Moran, RN Patient Health Questionnaire -2 Score 0 06/05/2025 3:58 PM EDT Martha Moran, RN documented as of this encounter Miscellaneous Notes * Progress Notes - Radha Velasquez, AVIATION SAFETY EQUIPMENT TECHNICIAN, CNM - 06/05/2025 4:20 PM EDT Gynecology Progress Note Subjective Carol is a 25 yo who presents with concerns for vaginal itching and thick white discharge.Tried monistat without improvement. Denies odor or burning. Has not had menses since before her tubal, but reports she was on depo before. Not currently sexually active in over 1 year. Concerns for weight gain. Hx of hyperthyroidism but has not been on medications for awhile. Did have normal labs off meds. Review of Systems Constitutional: Positive for unexpected weight change. HENT: Negative. Eyes: Negative. Respiratory: Negative. Cardiovascular: Negative. Gastrointestinal: Negative. Endocrine: Negative. Genitourinary: Positive for menstrual problem and vaginal discharge (+ itch). Musculoskeletal: Negative. Skin: Negative. Allergic/Immunologic: Negative. Neurological: Negative. Hematological: Negative. Psychiatric/Behavioral: Negative. Objective Visit Vitals BP 116/78 Pulse 87 Temp 36.8 ??C (98.3 ??F) Physical Exam Genitourinary: Vulva, bladder and urethral meatus normal. Right Labia: No rash, tenderness, lesions or skin changes. Left Labia: No tenderness, lesions, skin changes or rash. Vaginal discharge present. No vaginal tenderness or bleeding. Cervical discharge present. No cervical friability. HENT: Head: Normocephalic and atraumatic. Right Ear: External ear normal. Left Ear: External ear normal. Cardiovascular: Rate and Rhythm: Normal rate. Pulmonary: Effort: Pulmonary effort is normal. Abdominal: General: Abdomen is flat. Palpations: Abdomen is soft. Musculoskeletal: General: Normal range of motion. Cervical back: Normal range of motion. Neurological: General: No focal deficit present. Mental Status: She is alert and oriented to person, place, and time. Skin: General: Skin is warm and dry. Psychiatric: Mood and Affect: Mood normal. Behavior: Behavior normal. Thought Content: Thought content normal. Judgment: Judgment normal. Vitals and nursing note reviewed. Exam conducted with a jig and fixture maker present. Assessment/Plan Assessment & Plan Vaginal itching Orders: Bacterial Vaginosis Panel, Reflex to Lactobacillus Recovery; Future Rosetta Vaginitis Panel, Reflex to Fluconazole Resistance; Future fluconazole (Diflucan) 150 MG tablet; Take 1 tablet by mouth 1 time for 1 dose. Repeat in 72 hours if symptoms persist. Weight gain Orders: Bacterial Vaginosis Panel, Reflex to Lactobacillus Recovery; Future Rosetta Vaginitis Panel, Reflex to Fluconazole Resistance; Future Chlamydia trachomatis DNA by PCR; Future Neisseria gonorrhea DNA by PCR; Future Trichomonas Vaginalis Antigen; Future Hepatitis B Surface Antigen; Future Hepatitis C Antibody w/Reflex to HCV Quant PCR; Future Herpes Simplex Type 1 and Type 2 Glycoprotein G-Specific Antibodies, IgG; Future HIV 1 & 2 Antibody/Antigen Screen w/Reflex to HIV 1/2 Differentiation; Future CBC W/O Differential; Future Comprehensive metabolic panel; Future Lipid Profile, Plasma; Future Hemoglobin A1c; Future TSH; Future T4, free; Future Treponema Pallidum (Syphilis) Antibodies with Reflex to RPR and RPR Titer (Those with NO known Syphilis); Future Screening examination for STD (sexually transmitted disease) Orders: Chlamydia trachomatis DNA by PCR; Future Neisseria gonorrhea DNA by PCR; Future Trichomonas Vaginalis Antigen; Future Hepatitis B Surface Antigen; Future Hepatitis C Antibody w/Reflex to HCV Quant PCR; Future Herpes Simplex Type 1 and Type 2 Glycoprotein G-Specific Antibodies, IgG; Future HIV 1 & 2 Antibody/Antigen Screen w/Reflex to HIV 1/2 Differentiation; Future Treponema Pallidum (Syphilis) Antibodies with Reflex to RPR and RPR Titer (Those with NO known Syphilis); Future Missed menses - Swab collected. Treat for suspected yeast. - STD screening per pt request, update on results and treat if indicated - Discussed return of menses and expectation after Depo Provera. - Discussed possible cause to weight gain. Labs today. Treat as indicated. Recommend diet and exercise. - Patient agrees with POC. All questions answered. - Scheduled for annual exam in August or . A total of 30 minutes was spent on this visit with at least more than 50% of the encounter spent incounseling and/or coordinating care including reviewing previous notes, counseling the patient on their identified issues as indicated in the note, discussing previous and/or ordered tests or imaging, prescribing/refilling medications, and documenting the findings in this note, as well as laying out a specific plan of action for this patient. documented in this encounter Plan of Treatment Upcoming Encounters Date Type Department Care Team (Late st Contact Info) Description 07/27/2025 9:00 AM EDT Office Visit Obstetrics & Gynecology [address] [place] [address] Radha Velasquez APRN, CNM [address] [facility] [address] [place] [address] 08/11/2025 9:15 AM EDT Procedure Visit Obstetrics & Gynecology [address] [place] [address] Malick Godinez MD [address] [place] [address] documented as of this encounter Procedures Procedure Name Priority Date/Time Associated Diagnosis Comments HIV 1/2 ANTIBODY/ANTIGEN SCREEN W/REFLEX TO HIV 1/2 ANTIBODY DIFFERENTIATION Routine 06/05/2025 4:20 PM EDT Screening examination for STD (sexually transmitted disease) TREPONEMA PALLIDUM (SYPHILIS) ANTIBODIES WITH REFLEX TO RPR AND RPR TITER (THOSE WITH NO KNOWN SYPHILIS) Routine 06/05/2025 4:20 PM EDT Screening examination for STD (sexually transmitted disease) TRICHOMONAS VAGINALIS ANTIGEN Routine 06/05/2025 4:20 PM EDT Screening examination for STD (sexually transmitted disease) CHLAMYDIA TRACHOMATIS DNA BY PCR Routine 06/05/2025 4:20 PM EDT Screening examination for STD (sexually transmitted disease) HERPES SIMPLEX TYPE 1 AND TYPE 2 GLYCOPROTEIN G-SPECIFIC ANTIBODIES, IGG (SO) Routine 06/05/2025 4:20 PM EDT Screening examination for STD (sexually transmitted disease) ROSETTA VAGINITIS PANEL,REFLEX TO FLUCONAZOLE RESISTANCE (SO) Routine 06/05/2025 4:20 PM EDT Vaginal itching BACTERIAL VAGINOSIS PANEL,REFLEX TO LACTOBACILLUS RECOVERY (SO) Routine 06/05/2025 4:20 PM EDT Vaginal itching HIV 1/2 ANTIBODY/ANTIGEN SCREEN WITH REFLEX TO HIV I/II DIFFERENTIATION Routine 06/05/2025 4:20 PM EDT Screening examination for STD (sexually transmitted disease) HEPATITIS C ANTIBODY W/REFLEX TO HCV QUANT PCR Routine 06/05/2025 4:20 PM EDT Screening examination for STD (sexually transmitted disease) NEISSERIA GONORRHEA DNA BY PCR Routine 06/05/2025 4:20 PM EDT Screening examination for STD (sexually transmitted disease) HEPATITIS B SURFACE ANTIGEN Routine 06/05/2025 4:20 PM EDT Screening examination for STD (sexually transmitted disease) CBC W/O DIFFERENTIAL Routine 06/05/2025 4:20 PM EDT Weight gain TSH Routine 06/05/2025 4:20 PM EDT Weight gain FREE T4, PLASMA Routine 06/05/2025 4:20 PM EDT Weight gain HEMOGLOBIN A1C Routine 06/05/2025 4:20 PM EDT Weight gain LIPID PROFILE, PLASMA Routine 06/05/2025 4:20 PM EDT Weight gain COMPREHENSIVE METABOLIC PANEL, PLASMA Routine 06/05/2025 4:20 PM EDT Weight gain documented in this encounter Results * HIV 1 & 2 Antibody/Antigen Screen (06/05/2025 4:20 PM EDT) HIV 1 & 2 Antibody/Antigen Screen Non Reactive Non Reactive 06/05/2025 7:10 PM EDT [facility] Comment:Screening for HIV 1 & 2 antibodies, and P24 antigen is NONREACTIVE. No confirmatory testing is required. Blood Venous blood specimen / Unknown Venipuncture / Unknown 06/05/2025 4:20 PM EDT 06/05/2025 6:25 PM EDT Radha Velasquez APRN, ANDRAE LAB BLOOD ORDERABLES Fi nal Result Performing Organization Address [facility] Co de Phone Number [facility] [address] [place] [address] * Treponema Pallidum (Syphilis) Antibodies with Reflex to RPR and RPR Titer (Those with NO known Syphilis) (06/05/2025 4:20 PM EDT) Pathologist [facility] Syphilis Antibody (IgG+IgM) Nonreactive Nonreactive 06/05/2025 7:41 PM EDT [facility] Comment:Nonreactive. No sero logic evidence of syphilis. No follow-up necessary unless clinically indicated (e.g., early syphilis). Blood Venous blood specimen / Unknown Venipuncture / Unknown 06/05/2025 4:20 PM EDT 06/05/2025 6:25 PM EDT Radha Velasquez APRN, GLORIA LAB BLOOD ORDERABLES Fi nal Result Performing Organization Address [facility] Co de Phone Number [facility] [address] [place] [address] * T4, free (06/05/2025 4:20 PM EDT) Free T4, Plasma 1.1 0.8 - 1.7 ng/dL 06/05/2025 6:56 PM EDT [facility] Blood Venous blood specimen / Unknown Venipuncture / Unknown 06/05/2025 4:20 PM EDT 06/05/2025 6:08 PM EDT Narrative [facility] - 06/05/2025 6:56 PM EDT Free T4 Trimester Specific Ranges 1st Trimester 0.9 - 1.50 ng/dL 2nd Trimester 0.7 - 1.40 ng/dL 3rd Trimester 0.7 - 1.24 ng/dL Radha Velasquez APRN, GLORIA LAB BLOOD ORDERABLES Fi nal Result Performing Organization Address [facility] [place] [address] * (ABNORMAL) TSH (06/05/2025 4:20 PM EDT) Thyroid Stimulating Hormone, Plasma 5.18(H) 0.40 - 4.20 uIU/mL 06/05/2025 6:56 PM EDT [facility] Blood Venous blood specimen / Unknown Venipuncture / Unknown 06/05/2025 4:20 PM EDT 06/05/2025 6:08 PM EDT [facility] - 06/05/2025 6:56 PM EDT Trimester Specific Ranges TSH ( IU/mL) 1st Trimester 0.1 - 3.0 2nd Trimester 0.19 - 4.06 3rd Trimester 0.3 - 3.7 Radha Velasquez APRN, GLORIA LAB BLOOD ORDERABLES Fi nal Result Performing Organization Address [facility] Phone Number [facility] [address] [place] [address] * Hemoglobin A1c (06/05/2025 4:20 PM EDT) Hemoglobin A1c 5.2 <5.7 % 06/05/2025 7:35 PM EDT [facility] Blood Venous blood specimen / Unknown Venipuncture / Unknown 06/05/2025 4:20 PM EDT 06/05/2025 6:24 PM EDT [facility] - 06/05/2025 7:35 PM EDT HA1C Interpretive Data: Diagnosis of Diabetes: Diabetic > or = 6.5% Pre-diabetic 5.7 to 6.4% Non-diabetic < or = 5.6% Glycemic Targets for Type I and Type II Diabetics: Non- Adults <7.0% Adults <6.0% Children and Adolescents <7.5% Source: [place] [employer]. Standards of medical care in diabetes,2017. Diabetes Care.2017:40 (suppl 1):S1-S135. Radha Velasquez APRN, GLORIA LAB BLOOD ORDERABLES Fi nal Result [facility] [address] [place] [address] * (ABNORMAL) Lipid Profile, Plasma (06/05/2025 4:20 PM EDT) [facility] Cholesterol, Plasma 117 <200 mg/dL 06/05/2025 6:56 PM EDT [facility] Comment: Cholesterol Reference Range (age >17 years): Desirable <200 mg/dL Borderline 200 to 239 mg/dL Undesirable >239 mg/dL HDL 38(L) >=50 mg/dL 06/05/2025 6:56 PM EDT [facility] Comment: HDL Cholesterol Reference Ranges (age >17 years): Female, acceptable > or = 50 mg/dL Male, acceptable > or = 40 mg/dL Triglycerides, Plasma 120 <150 mg/dL 06/05/2025 6:56 PM EDT [facility] Comment: Triglyceride Reference Range (age >17 years): Desirable: <150 mg/dL Borderline high: 150 to 199 mg/dL High: 200 to 499 mg/dL Very high: >499 mg/dL Increased risk of pancreatitis: >1000 mg/dL Cholesterol/HDL Ratio 3 06/05/2025 6:56 PM EDT [facility] LDL, Calculated 57 <100 mg/dL 6:56 PM EDT [facility] Comment: LDL Cholesterol Reference Range (age >17 years): Optimal: <100 mg/dL Near or above optimal: 100 - 129 mg/dL Borderline high: 130 - 159 mg/dL High: 160 - 189 mg/dL Very high: >189 mg/dL LDL Cholesterol Reference Range (age <18 years): Desirable: <110 mg/dL Borderline: 110 - 129 mg/dL Undesirable: >130 mg/dL LDL Cholesterol is calculated using the Cortes/NIH equation. Fasting greater than or equal to 12 hours? No 06/05/2025 6:56 PM EDT [facility] Blood Venous blood specimen / Unknown Venipuncture / Unknown 06/05/2025 4:20 PM EDT 06/05/2025 6:08 PM EDT us Radha Velasquez AVIATION SAFETY EQUIPMENT TECHNICIAN, CNM LAB BLOOD ORDERABLES Fi nal Result [facility] [address] [place] [address] * (ABNORMAL) Comprehensive metabolic panel (06/05/2025 4:20 PM EDT) Glucose, Plasma 89 74 - 99 mg/dL 06/05/2025 6:56 PM EDT [facility] BUN, Plasma 11 7 - 21 mg/dL 06/05/2025 6:56 PM EDT [facility] Creatinine, Plasma 0.77 0.60 - 1.10 mg/dL 06/05/2025 6:56 PM EDT [facility] BUN/Creatinine Ratio 14 06/05/2025 6:56 PM EDT [facility] Sodium, Plasma 142 136 - 145 mmol/L 06/05/2025 6:56 PM EDT [facility] Potassium, Plasma 4.1 3.6 - 4.9 mmol/L 06/05/2025 6:56 PM EDT [facility] Chloride, Plasma 105 97 - 107 mmol/L 06/05/2025 6:56 PM EDT [facility] CO2, Plasma 24 22 - 29 mmol/L 06/05/2025 6:56 PM EDT [facility] Anion Gap 13 6 - 16 mmol/L 06/05/2025 6:56 PM EDT [facility] Total Calcium, Plasma 9.5 8.9 - 10.2 mg/dL 06/05/2025 6:56 PM EDT [facility] Total Protein 7.0 6.3 - 7.9 g/dL 06/05/2025 6:56 PM EDT [facility] Albumin, Plasma 4.5 3.5 - 5.2 g/dL 06/05/2025 6:56 PM EDT [facility] AST, Plasma 27 10 - 35 U/L 06/05/2025 6:56 PM EDT [facility] ALT, Plasma 19 10 - 35 U/L 06/05/2025 6:56 PM EDT [facility] Alkaline Phosphatase, Plasma 96 35 - 104 U/L 06/05/2025 6:56 PM EDT [facility] Total Bilirubin, Plasma <0.2(L) 0.2 - 1.1 mg/dL 06/05/2025 6:56 PM EDT [facility] eGFRcr 109.9 mL/min/1.7 3m*2 06/05/2025 6:56 PM EDT [facility] Comment:Reported eGFRcr in m L/min/1.73m2 is based the CKD-EPI 2020 equation that does not use a race coefficient. Blood Venous blood specimen / Unknown Venipuncture / Unknown 06/05/2025 4:20 PM EDT 06/05/2025 6:08 PM EDT Radha Velasquez APRN, GLORIA LAB BLOOD ORDERABLES Fi nal Result [facility] [address] [place] [address] * CBC W/O Differential (06/05/2025 4:20 PM EDT) WBC Count 8.09 3.70 - 10.30 10*3/uL LAB HEMATOLOGY METHOD 06/05/2025 6:40 PM EDT [facility] RBC Count 4.71 3.90 - 5.20 10*6/uL LAB HEMATOLOGY METHOD 06/05/2025 6:40 PM EDT [facility] HGB 13.8 11.2 - 15.7 g/dL LAB HEMATOLOGY METHOD 06/05/2025 6:40 PM EDT [facility] HCT 42.3 34.0 - 45.0 % LAB HEMATOLOGY METHOD 06/05/2025 6:40 PM EDT [facility] Platelet Count 323 155 - 369 10*3/uL LAB HEMATOLOGY METHOD 06/05/2025 6:40 PM EDT [facility] MCV 90 79 - 98 fL LAB HEMATOLOGY METHOD 06/05/2025 6:40 PM EDT [facility] MCH 29.3 26.0 - 32.0 pg LAB HEMATOLOGY METHOD 06/05/2025 6:40 PM EDT [facility] MCHC 32.6 30.7 - 35.5 g/dL LAB HEMATOLOGY METHOD 06/05/2025 6:40 PM EDT [facility] RDW 12.6 11.5 - 14.5 % LAB HEMATOLOGY METHOD 06/05/2025 6:40 PM EDT [facility] MPV 9.7 8.8 - 12.5 fL LAB HEMATOLOGY METHOD 06/05/2025 6:40 PM EDT [facility] nRBC 0.0 <=0.0 per 100 WBCs LAB HEMATOLOGY METHOD 06/05/2025 6:40 PM EDT [facility] Blood Venous blood specimen / Unknown Venipuncture / Unknown 06/05/2025 4:20 PM EDT 06/05/2025 6:08 PM EDT Radha Velasquez APRN, CNM LAB BLOOD ORDERABLES Fi nal Result [facility] [address] [place] [address] * (ABNORMAL) Herpes Simplex Type 1 and Type 2 Glycoprotein G-Specific Antibodies, IgG (06/05/2025 4:20 PM EDT) HSV 1 Glycoprotien G Ab, IgG 0.56 <=0.89 IV 06/08/2025 1:45 AM EDT [facility] ([email or web address]) HSV 2 Glycoprotein G Ab, IgG 16.90(H) <=0.89 IV 06/08/2025 1:45 AM EDT [facility] ([email or web address]) Blood Venous blood specimen / Unknown Venipuncture / Unknown 06/05/2025 4:20 PM EDT 06/05/2025 6:25 PM EDT Narrative [facility] ([email or web address]) - 06/08/2025 1:45 AM EDT REFERENCE INTERVAL: HSV 1 Glycoprotein G Ab, IgG 0.89 IV or less ...... Negative - No significant level of detectable IgG antibody to HSV type 1 glycoprotein G. 0.90 - 1.09 IV ....... Equivocal - Questionable presence of IgG antibody to HSV type 1 glycoprotein G. Repeat testing in 10 - 14 days may be helpful. 1.10 IV or greater ... Positive - IgG antibody to HSV type 1 glycoprotein G detected, which may indicate a current or past HSV infection. Individuals infected with HSV may not exhibit detectable IgG antibody to type-specific HSV antigens 1 and 2 in early stages of infection. Detection of antibody presence in these cases may only be possible using a non-type specific screening test. REFERENCE INTERVAL: HSV 2 Glycoprotein G Ab, IgG 0.89 IV or less ....... Negative - No significant level of detectable IgG antibody to HSV type 2 glycoprotein G. 0.90 - 1.09 IV ........ Equivocal - Questionable presence of IgG antibody to HSV type 2 glycoprotein G. Repeat testing in 10 - 14 days may be helpful. 1.10 IV or greater .... Positive - IgG antibody to HSV type 2 glycoprotein G detected, which may indicate a current or past HSV infection. Individuals infected with HSV may not exhibit detectable IgG antibody to type-specific HSV antigens 1 and 2 in early stages of infection. Detection of antibody presence in these cases may only be possible using a non-type specific screening test. False positive results are possible. Consider additional testing for HSV-2, particularly if the result for HSV-2 is </= 3.0 IV. Performed By: [facility] [address] [place] [address] Copy Camera Operator: Oniel Ramirez MD, PhD CLIA Number: [id number] Radha Velasquez APRN, GLORIA LAB BLOOD ORDERABLES Fi nal Result [employer] [address] [place] [address] * Hepatitis C Antibody w/Reflex to HCV Quant PCR (06/05/2025 4:20 PM EDT) [facility] Hepatitis C Antibody Negative Negative 06/05/2025 7:00 PM EDT [facility] Blood Venous blood specimen / Unknown Venipuncture / Unknown 06/05/2025 4:20 PM EDT 06/05/2025 6:25 PM EDT Radha Velasquez APRN, CNM LAB BLOOD ORDERABLES Fi nal Result Performing Organization Address [facility] Co de Phone Number [facility] [address] [place] [address] * Hepatitis B Surface Antigen (06/05/2025 4:20 PM EDT) Hepatitis B Surf Antigen Negative Negative 06/05/2025 7:41 PM EDT [facility] Blood Venous blood specimen / Unknown Venipuncture / Unknown 06/05/2025 4:20 PM EDT 06/05/2025 6:25 PM EDT Radha Velasquez APRN, CNM LAB BLOOD ORDERABLES Fi nal Result Performing Organization Address [facility] de Phone Number [facility] [address] [place] [address] * Trichomonas Vaginalis Antigen (06/05/2025 4:20 PM EDT) Trichomonas vaginalis Antigen Result Negative Negative 06/06/2025 8:51 AM EDT [facility] Swab Vaginal structure / Unknown Non-blood Collection / Unknown 06/05/2025 4:20 PM EDT 06/05/2025 6:10 PM EDT Narrative [facility] - 06/06/2025 8:51 AM EDT This test was developed and its performance characteristics determined by [facility]. It has not been cleared or approved by the US Food and Drug Administration. FDA does not require this test to go through premarket FDA review. This test is used for clinical purposes. It should not be regarded as investigational or for research. This laboratory is certified under the Clinical Laboratory Improvement Amendments (CLIA) as qualified to perform high complexity clinical laboratory testing. Radha Velasquez APRN, CNM LAB MICROBIOLOGY - GENE RAL ORDERABLES Final Result Performing Organization Address [facility] Co de Phone Number [facility] [address] [place] [address] * Neisseria gonorrhea DNA by PCR (06/05/2025 4:20 PM EDT) Neisseria gonorrhea DNA PCR Result Not Detected Not Detected. 06/06/2025 2:51 PM EDT [facility] Swab Vaginal structure / Unknown Non-blood Collection / Unknown 06/05/2025 4:20 PM EDT 06/05/2025 6:11 PM EDT Narrative [facility] - 06/06/2025 2:51 PM EDT This test is performed by the [employer] m2000 instrument for Real Time PCR C. trachomatis and N. gonorrhea. This test is FDA approved for use with endocervical, vaginal, and urine specimens. This test is used for clinical purposes. It should not be regarded as invesigational or for research. The [facility] is certified under the Clinical Laboratory Improvement Amendments of 1988 (CLIA-88) as qualified to perform high complexity clinical laboratory testing. Radha Velasquez APRN, CNM LAB MICROBIOLOGY - GENE [facility] ORDERABLES Final Result [facility] [address] [place] [address] * Chlamydia trachomatis DNA by PCR (06/05/2025 4:20 PM EDT) Chlamydia trachomatis DNA PCR Result Not Detected Not Detected 06/06/2025 2:51 PM EDT [facility] Swab Vaginal structure / Unknown Non-blood Collection / Unknown 06/05/2025 4:20 PM EDT 06/05/2025 6:11 PM EDT Narrative [facility] - 06/06/2025 2:51 PM EDT This test is performed by the [employer]el[employer] m2000 instrument for Real Time PCR C. trachomatis and N. gonorrhea. This test is FDA approved for use with endocervical, vaginal, and urine specimens. This test is used for clinical purposes. It should not be regarded as invesigational or for research. The [facility] is certified under the Clinical Laboratory Improvement Amendments of 1988 (CLIA-88) as qualified to perform high complexity clinical laboratory testing. Radha Velasquez APRN, CNM LAB MICROBIOLOGY - GENE RAL ORDERABLES Final Result [facility] [address] [place] [address] * Rosetta Vaginitis Panel, Reflex to Fluconazole Resistance (06/05/2025 4:20 PM EDT) See Scanned Result SEE SCANNED REPORT 06/12/2025 10:38 AM EDT [facility] Swab Endocervical structure / Unknown Non-blood Collection / Unknown 06/05/2025 4:20 PM EDT 06/05/2025 6:09 PM EDT Radha Velasquez APRN, CNM LAB REF LAB BLOOD AND F LUID ORD Final Result Performing Organization Address [facility] Co de Phone Number [facility] * Bacterial Vaginosis Panel, Reflex to Lactobacillus Recovery (06/05/2025 4:20 PM EDT) See Scanned Result SEE SCANNED REPORT 06/12/2025 10:37 AM EDT [facility] Swab Endocervical structure / Unknown Non-blood Collection / Unknown 06/05/2025 4:20 PM EDT 06/05/2025 6:09 PM EDT Radha Velasquez APRN, CNM LAB REF LAB BLOOD AND F LUID ORD Final Result Performing Organization Address [facility]/ZIP Co de Phone Number [facility] documented in this encounter Visit Diagnoses Diagnosis Vaginal itching- Primary Pruritus of genital organs Weight gain Other symptoms concerning nutrition, metabolism, and development Screening examination for STD (sexually transmitted disease) Missed menses documented in this encounter Additional Health Concerns Assessment Noted Time PHQ-9 Depression Total Score: 0 04/13/20 25 8:41 AM EDT A fall risk assessment has been complete d for the patient 06/05/2025 3:58 PM EDT A Body Mass Index follow-up plan has been documented for the patient 06/05/2025 4:23 PM EDT documented as of this encounter Care Teams Flight Superintendent Relationship Specialty Start Date End Date Provider, Jahaira Gomez PCP - General 05/17/21 documented as of this encounter
[2025-06-17] VITALS (7 sets, daily range): BP systolic 111–120; BP diastolic 74–91; PULSE 56–95; RESP 17–19; TEMP 36.8–37.1; O2SAT 98–100; BMI 23.3
--- OUTSIDE RECORDS SUMMARY | 2025-06-17 16:03 | XMS_ITS | Clinical Summary ---
Author Organization [facility] Address [address] [place] [address] Care Team Providers Care Forensic Science Technician Name Role Phone Provider, No Known Primary Care Provider Unavail able Allergies No known active allergies Medications levothyroxine (SYNTHROID, LEVOTHROID) 75 MCG tablet Take 75 mcg by mouth Every Morning. Active Active Problems Problem Noted Date Diagnosed Date labor in third trimester 07/22/2022 Social History Tobacco Use Types Packs/Day Years Used Date Smoking Tobacco: Never Assessed AUDIT-C Answer Date Recorded Q1: How often do you have a drink containing alc ohol? Never 07/22/2022 Average Number of Drinks Not on file 022 Q3: How often do you have si x or more drinks on one occasion? Never 07/22/2022 Abuse Screen Answer Date Recorded Unsafe at Home or Work/School Not on file Feels Threatened by Someone? Not on file 07/2023 Does Anyone Keep You from Co ntacting Others or Doint Things Outside the Home? Not on file 08/17/2023 Physical Sign of Abuse Present Not on file 1 Housing Stability Answer Date Recorded Current Living Arrangements Not on file 07/2023 Potentially Unsafe Housing Conditions Not on linsey e 08/17/2023 Family and Community Support Answer Danial e Recorded Help with Day-to-Day Activities Not on file 08/17/2023 Lonely or Isolated Not on file 08/17/2023 Employment Answer Date Recorded Do you want help finding or keeping work or a evelyne b? Not on file 08/17/2023 Disabilities Answer Date Recorded Concentrating, Remembering, or Making Decisions Difficulty Not on file 08/17/2023 Doing Errands Independently Difficulty Not on fi le 08/17/2023 Education Answer Date Recorded Help with school or training? Not on file Preferred Language Not on file 08/17/2023 Comments No Sex and Gender Information Value Date Recorded Sex Assigned at Not on file Legal Sex Female 11:34 AM EDT Gender Identity Not on file Sexual Orientation Not on file Last Filed Vital Signs Vital Sign Reading Time Taken Comments Blood Pressure 105/59 07/24/2022 7:47 AM EDT Pulse 82 07/24/2022 7:47 AM EDT Temperature 36.5 C (97.7 F) 07/24/2022 7:47 AM EDT Respiratory Rate 16 07/24/2022 7:47 AM EDT Oxygen Saturation 98% 07/23/2022 5:13 PM EDT Inhaled Oxygen Concentration - - Weight 50.8 kg (112 lb) 06/08/2019 1:48 AM EDT Height 157.5 cm (5' 2 ) 06/08/2019 1:48 AM EDT Body Mass Index 20.49 06/08/2019 1:48 AM EDT Plan of Treatment Health Maintenance Due Date Last Done Comments ANNUAL PHYSICAL 2000 Annual Gynecologic Pelvic and Breast Exam 2000 HPV VACCINES (1 - 3-dose series) 2015 PAP SMEAR 2021 COVID-19 Vaccine ( - 2023- season) 2024 INFLUENZA VACCINE 08/09/2025 10/03/2019 TDAP/TD VACCINES (3 - Td or Tdap) 06/12/2032 06/12/2022, 10/03/2019 CHLAMYDIA SCREENING Discontinued 03/11/2022 HEPATITIS C SCREENING Completed 03/11/2022 , 03/11/2022, 05/17/2021 Pneumococcal Vaccine 0-49 Aged Out No longer eligible based on patient's age to complete this topic Insurance [place] [address] Advance Directives * CPR (Attempt to Resuscitate) (Latest Code Status on File) Date Activated Date Inactivated Comments 07/22/2022 4:33 PM 07/24/2022 10:34 AM Question Answer Comments Code Status (Patient has no pulse and is not breathing): CPR (Attempt to Resuscitate) Medical Interventions (Patie nt has pulse or is breathing): Full Support Care Teams Forensic Science Technician Relationship Specialty Start Date End Date Provider, [place] [address] PCP - General 06/08/19
--- OUTSIDE RECORDS SUMMARY | 2025-06-17 16:03 | XMS_ITS | Encounter Summary ---
Author Organization Healthcare Address [address] [place] [address] Care Team Providers Care Binder Sorter Name Role Phone Provider, Jahaira [place] Primary Care Provid er Unavailable Encounter Details Date Type Department Care Team (Latest Contact Info) Description 06/05/2025 Travel Social History Tobacco Use Types Packs/Day Years Used Date Smoking Tobacco: Never Smokeless Tobacco: Never Alcohol Use Standard Drinks/Week Comments Not Currently 0 (1 standard drink = 0.6 oz pur e alcohol) PHQ-2 Answer Date Recorded Patient Health Questionnaire-2 Score 0 06/05/2025 [place] Depression Scale Answer Date Recorded [place] Depression Scale Total 2 01/06/2022 The thought [...] drink first t hay in the morning (EYE-OPAL MINER) to steady your nerves or to get rid of a hangover? 0 07/25/2022 CAGE Questionnaire Score 0 022 Comments No Sex and Gender Information Value Date Recorded Sex Assigned at Female 05/02/2021 9:17 AM EDT Legal Sex Female 7:04 PM EDT Gender Identity Female 05/02/2021 9:17 AM EDT Sexual Orientation Straight 05/02/2021 9: 17 AM EDT documented as of this encounter Functional Status * Over the past 2 weeks, how often have you been bothered by any of the following problems? Question Answer Date of Assessment Author Little interest or pleasure in doing things Not at all 06/05/2025 3:58 PM EDT Martha Moran RN Feeling down, depressed, or hopeless Not at all 06/05/2025 3:58 PM EDT Martha Moran RN Patient Health Questionnaire -2 Score 0 06/05/2025 3:58 PM EDT Martha Moran RN documented as of this encounter Plan of Treatment Upcoming Encounters Date Type Department Care Team (Late st Contact Info) Description 07/27/2025 9:00 AM EDT Office Visit Obstetrics & Gynecology [address] [place] [address] Radha Velasquez, RASHAWN, CN [address] [facility] [address] [place] [address] 08/11/2025 9:15 AM EDT Procedure Visit Obstetrics & Gynecology [address] [place] [address] Malick Godinez MD [address] [place] [address] documented as of this encounter Visit Diagnoses Not on filedocumented in this encounter Additional Health Concerns Assessment Noted Time PHQ-9 Depression Total Score: 0 04/13/20 25 8:41 AM EDT A fall risk assessment has been complete d for the patient 06/05/2025 3:58 PM EDT A Body Mass Index follow-up plan has been documented for the patient 06/05/2025 4:23 PM EDT documented as of this encounter Care Teams Binder Sorter Relationship Specialty Start Date End Date Provider, Jahaira Gomez PCP - General 05/17/21 documented as of this encounter
--- OUTSIDE RECORDS SUMMARY | 2025-06-17 16:03 | XMS_ITS | Encounter Summary ---
Author Organization Healthcare Address [address] [place] [address] Care Team Providers Care Executive Casino Host Name Role Phone Provider, Jahaira [place] Primary Care Provid er Unavailable Encounter Details Date Type Department Care Team (Late st Contact Info) Description 06/02/2025 Telephone [facility] SCHEDULING [address] [place] [phone] Malick Godinez MD [address] [place] [address] Social History Tobacco Use Types Packs/Day Years Used Date Smoking Tobacco: Never Smokeless Tobacco: Never Alcohol Use Standard Drinks/Week Comments Not Currently 0 (1 standard drink = 0.6 oz pur e alcohol) PHQ-2 Answer Date Recorded Patient Health Questionnaire-2 Score 0 06/05/2025 [place] Depression Scale Answer Date Recorded [place] Depression Scale Total 2 01/06/2022 The thought [...] drink first t hay in the morning (EYE-LONG LINES OPERATOR) to steady your nerves or to get [...] EDT Office Visit Obstetrics & Gynecology [address] [place] [address] Radha Velasquez, TRANSFORMER MECHANIC, CNM [address] [facility] [address] [place] [address] 08/11/2025 9:15 AM EDT Procedure Visit Obstetrics & Gynecology [address] [place] [address] Malick Godinez MD [address] [place] [address] documented as of this encounter Visit Diagnoses Not on filedocumented in this encounter Additional Health Concerns Assessment Noted Time PHQ-9 Depression Total Score: 0 04/13/20 25 8:41 AM EDT A fall risk assessment has been complete d for the patient 04/13/2025 8:41 AM EDT A Body Mass Index follow-up plan has been documented for the patient 04/13/2025 8:46 AM EDT documented as of this encounter Care Teams Executive Casino Host Relationship Specialty Start Date End Date Provider, Jahaira Gomez PCP - General 05/17/21 documented as of this encounter
--- OUTSIDE RECORDS SUMMARY | 2025-06-17 16:03 | XMS_ITS | Clinical Summary ---
Author Organization [facility] Address [address] 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 90 tablet 4 5 Active valACYclovir (Valtrex) 500 MG tabletIndication s:HSV-2 seropositive Take 1 tablet by mouth daily. 90 tablet 3 5 06/08/20 26 Active terconazole (Terazol 7) 0.4 % vaginal creamIndications :Vulvovaginal candidiasis Insert 1 applicator into the vagina nightly for 7 days. 45 g 5 06/19/20 25 Active fluconazole (Diflucan) 150 MG tabletIndication s:Vaginal itching Take 1 tablet by mouth 1 time for 1 dose. Repeat in 72 hours if symptoms persist. 2 tablet 5 06/05/20 25 Active Problems Problem Noted Date Diagnosed Date premature rupture of membranes (PPROM) with unknown onset of labor 07/25/2022 Hypothyroid in , antepartum 08/07/2021 Low weight gain during , antepartum Supervision of other normal , antepartu m 06/25/2021 Encounters Date Type Department Care Team Description 06/06/2025 Telephone Obstetrics & Gynecology [address] [place] [address] Malick Godinez MD HCN - Patient Message 06/06/2025 Results Follow-Up Obstetrics & Gynecology [address] [place] [place] [address] Radha Velasquez APRN, CNM 06/05/2025 4:20 PM EDT Office Visit Obstetrics & Gynecology [address] [place] [place] [address] Radha Velasquez APRN, CNM Vaginal itching (Primary Dx); Weight gain; Screening examination for STD (sexually transmitted disease); Missed menses 06/05/2025 Travel 06/02/2025 Telephone Obstetrics & Gynecology [address] [place] [address] Malick Godinez MD HCN - Patient Message 06/02/2025 Telephone PFE SCHEDULING [address] [place] [address] Malick Godinez MD 04/13/2025 9:00 AM EDT Office Visit Obstetrics & Gynecology [address] [place] [address] Malick Godinez MD Status post surgery (Primary Dx) 04/13/2025 Travel from Last 3 Months Immunizations Immunization Administration Dates Next Due Influenza, injectable, quadrivalent 10/03/2019 Influenza, injectable, quadrivalent, preservativ e free 07/28/2022 Tdap 06/12/2022,10/03/2019 Family History Medical History Relation Name Comments No Known Problems Brother No Known Problems Daughter No Known Problems Father No Known Problems Father's Brother No Known Problems Father's Sister Blindness Maternal Grandmother Heather Edwards Skin cancer Maternal Grandmother Heather Edwards Vision loss Maternal Grandmother Heather Edwards No Known Problems Mother No Known Problems Mother's Brother No Known Problems Mother's Sister No Known Problems Sister No Known Problems Son Relation Name Status Comments Brother Alive Daughter Alive Father Alive Father's Brother Father's Sister Maternal Grandfather Maternal Grandmother Heather Edwards Alive Mother Alive Mother's Brother Mother's Sister Paternal Grandfather Paternal Grandmother Sister Alive Son Alive Social History Tobacco Use Types Packs/Day Years Used Date Smoking Tobacco: Never Smokeless Tobacco: Never Tobacco Cessation:Counseling Given: Not Answered Alcohol Use Standard Drinks/Week Comments Not Currently 0 (1 standard drink = 0.6 oz pur e alcohol) PHQ-2 Answer Date Recorded Patient Health Questionnaire-2 Score 0 06/05/2025 [place] Depression Scale Answer Date Recorded [place] Depression Scale Total 2 01/06/2022 The thought [...] 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 0 07/25/2022 CAGE Questionnaire Score 0 022 Comments No Sex and Gender Information Value Date Recorded Sex Assigned at Female 05/02/2021 9:17 AM EDT Legal Sex Female 7:04 PM EDT Gender Identity Female 05/02/2021 9:17 AM EDT Sexual Orientation Straight 05/02/2021 9: 17 AM EDT Last Filed Vital Signs Vital Sign Reading Time Taken Comments Blood Pressure 116/78 06/05/2025 3:57 PM EDT Pulse 87 06/05/2025 3:57 PM EDT Temperature 36.8 C (98.3 F) 06/05/2025 3:57 PM EDT Respiratory Rate 20 03/10/2025 8:18 AM EDT Oxygen Saturation 97% 06/05/2025 3:57 PM EDT Inhaled Oxygen Concentration - - Weight 61.6 kg (135 lb 12.9 oz) 06/05/2025 3:57 PM EDT Height 157.5 cm (5' 2 ) 06/05/2025 3:57 PM EDT Body Mass Index 24.84 06/05/2025 3:57 PM EDT Plan of Treatment Upcoming Encounters Date Type Department Care Team (Late st Contact Info) Description 07/27/2025 9:00 AM EDT Office Visit Obstetrics & Gynecology [address] [place] [address] Radha Velasquez, RASHAWN, CNM [address] [facility] [address] [place] [address] 08/11/2025 9:15 AM EDT Procedure Visit Obstetrics & Gynecology [address] [place] [address] Malick Godinez MD [address] [place] [address] Health Maintenance Due Date Last Done Comments [facility]-/Child/Adol SDOH Screenings 2000 [id number] Vaccine (#1) 2005 [facility]-Varicella Vaccines (1 of 2 - 13+ 2-dose series) 2013 HPV Vaccines (1 - 3-dose series) 2015 [facility]- SDOH Screenings 2018 [facility]-Adult SDOH Screenings 2018 [facility]-Hepatitis B Vaccines (1 of 3 - 19+ 3-dose series) 2019 [facility]-Influenza Vaccine (#1) 07/10/202507/28, 10/03/2019, 07/08/2016 [facility]-Depression Screening 06/05/2026 025, 04/13/2025, 01/06/2022 [facility]-Pap Smear 01/05/2028 01/05/2025, 01/0 03/2024, 12/22/2022 [facility]-DTaP,Tdap,and Td Vaccines (3 - Td or Tdap) 06/12/2032 06/12/2022, 10/03/2019 [facility]-Zoster Vaccines (1 of 2) 2050 [facility]-HIV Screening Completed 06/05/2025, , 05/17/2021 [facility]-Hepatitis C Screening Completed 2024, 03/11/2022, 05/17/2021, Additional history exists [facility]-HIB Vaccines Aged Out No longer e ligible based on patient's age to complete this topic [facility]-Hepatitis A Vaccines Aged Out No longer eligible based on patient's age to complete this topic [facility]-IPV Vaccines Aged Out No longer e ligible based on patient's age to complete this topic [facility]-Pneumococcal Vaccine: Pediatrics (0 to 5 Years) and At-Risk Patients (6 to 49 Years) Aged Out No longer eligible based on patient's age to complete this topic [facility]-Rotavirus Vaccines Aged Out No lo nger eligible based on patient's age to complete this topic Procedures Procedure Name Priority Date/Time Associated Diagnosis Comments HIV 1/2 ANTIBODY/ANTIGEN SCREEN WITH REFLEX TO HIV I/II DIFFERENTIATION Routine 06/05/2025 4:20 PM EDT Screening examination for STD (sexually transmitted disease) TREPONEMA PALLIDUM (SYPHILIS) ANTIBODIES WITH REFLEX TO RPR AND RPR TITER (THOSE WITH NO KNOWN SYPHILIS) Routine 06/05/2025 4:20 PM EDT Screening examination for STD (sexually transmitted disease) FREE T4, PLASMA Routine 06/05/2025 4:20 PM EDT Weight gain TSH Routine 06/05/2025 4:20 PM EDT Weight gain HEMOGLOBIN A1C Routine 06/05/2025 4:20 PM EDT Weight gain LIPID PROFILE, PLASMA Routine 06/05/2025 4:20 PM EDT Weight gain COMPREHENSIVE METABOLIC PANEL, PLASMA Routine 06/05/2025 4:20 PM EDT Weight gain CBC W/O DIFFERENTIAL Routine 06/05/2025 4:20 PM EDT Weight gain HIV 1/2 ANTIBODY/ANTIGEN SCREEN W/REFLEX TO HIV [...] Routine 06/05/2025 4:20 PM EDT Vaginal itching TRICHOMONAS VAGINALIS ANTIGEN Routine 06/05/2025 4:20 PM EDT Screening examination for STD (sexually transmitted disease) NEISSERIA GONORRHEA DNA BY PCR Routine 06/05/2025 4:20 PM EDT Screening examination for STD (sexually transmitted disease) CHLAMYDIA TRACHOMATIS DNA BY PCR Routine 06/05/2025 4:20 PM EDT Screening examination for STD (sexually transmitted disease) REFERRED THINPREP PAP AND HPV (SO) Routine 01/05/2025 9:12 AM EST Encounter for gynecological examination without abnormal finding from Last 3 Months or Most Recently Relevant to Health Maintenance Results * Treponema Pallidum (Syphilis) Antibodies with Reflex to RPR and RPR Titer (Those with NO known Syphilis) (06/05/2025 4:20 PM EDT) Pathologist [facility] Syphilis Antibody (IgG+IgM) Nonreactive Nonreactive 06/05/2025 7:41 PM EDT [facility] Comment:Nonreactive. No sero logic evidence of syphilis. No follow-up necessary unless clinically indicated (e.g., early syphilis). Blood Venous blood specimen / Unknown Venipuncture / Unknown 06/05/2025 4:20 PM EDT 06/05/2025 6:25 PM EDT Radha Velasquez APRN, CNM LAB BLOOD ORDERABLES Fi nal Result Performing Organization Address [facility] [place] [address] * Trichomonas Vaginalis Antigen (06/05/2025 4:20 PM EDT) [facility] Trichomonas vaginalis Antigen Result Negative Negative 06/06/2025 8:51 AM EDT [facility] Swab Vaginal structure / Unknown Non-blood Collection / Unknown 06/05/2025 4:20 PM EDT 06/05/2025 6:10 PM EDT Narrative [facility] - 06/06/2025 8:51 AM EDT This test was developed and its performance characteristics determined by [facility]. It has not been [...] RAL ORDERABLES Final Result Performing Organization Address [facility] [place] [address] * Chlamydia trachomatis DNA by PCR (06/05/2025 4:20 PM EDT) [facility] Chlamydia trachomatis DNA PCR Result Not Detected Not Detected 06/06/2025 2:51 PM EDT [facility] Swab Vaginal structure / Unknown Non-blood Collection / Unknown 06/05/2025 4:20 PM EDT 06/05/2025 6:11 PM EDT Narrative [facility] - 06/06/2025 2:51 PM EDT This test is performed by the AcuFocus000 instrument for Real Time PCR C. trachomatis and N. gonorrhea. This test is FDA approved for use with endocervical, vaginal, and urine specimens. This test is used for clinical purposes. It should not be regarded as invesigational or for research. The [facility] is certified under the Clinical Laboratory Improvement Amendments of 1988 (CLIA-88) as qualified to perform high complexity clinical laboratory testing. Radha Velasquez APRN, CNM LAB MICROBIOLOGY - GENE RAL ORDERABLES Final Result [facility] [address] [place] [address] * (ABNORMAL) Herpes Simplex Type 1 and Type 2 Glycoprotein G-Specific Antibodies, IgG (06/05/2025 4:20 PM EDT) HSV 1 Glycoprotien G Ab, IgG 0.56 <=0.89 IV 06/08/2025 1:45 AM EDT [facility] ([facility]) HSV 2 Glycoprotein G Ab, IgG 16.90(H) <=0.89 IV 06/08/2025 1:45 AM EDT [facility] ([facility]) Blood Venous blood specimen / Unknown Venipuncture / Unknown 06/05/2025 4:20 PM EDT 06/05/2025 6:25 PM EDT Narrative [facility] ([facility]) - 06/08/2025 1:45 AM EDT REFERENCE INTERVAL: [...] HSV-2 is </= 3.0 IV. Performed By: [facility] [address] [place] [address] Per Diem: Oniel Ramirez MD, PhD CLIA Number: [id number] Radha Velasquez APRN, CNM LAB BLOOD ORDERABLES Fi nal Result [facility] ([facility]) [address] [id number] * Rosetta Vaginitis Panel, Reflex to Fluconazole Resistance (06/05/2025 4:20 PM EDT) See Scanned Result SEE SCANNED REPORT 06/12/2025 10:38 AM EDT [facility] Swab Endocervical structure / Unknown Non-blood Collection / Unknown 06/05/2025 4:20 PM EDT 06/05/2025 6:09 PM EDT Radha Velasquez APRN, CNM LAB REF LAB BLOOD AND F LUID ORD Final Result Performing Organization Address [facility]/ZIP Co de Phone Number [facility] * Bacterial Vaginosis Panel, Reflex to Lactobacillus Recovery (06/05/2025 4:20 PM EDT) Pathologist [facility] See Scanned Result SEE SCANNED REPORT 06/12/2025 10:37 AM EDT [facility] Swab Endocervical structure / Unknown Non-blood Collection / Unknown 06/05/2025 4:20 PM EDT 06/05/2025 6:09 PM EDT Radha Velasquez APRN, CNM LAB REF LAB BLOOD AND F LUID ORD Final Result Performing Organization Address [facility] Co de Phone Number [facility] * HIV 1 & 2 Antibody/Antigen Screen (06/05/2025 4:20 PM EDT) [facility] HIV 1 & 2 Antibody/Antigen Screen Non Reactive Non Reactive 06/05/2025 7:10 PM EDT [facility] Comment:Screening for HIV 1 & 2 antibodies, and P24 antigen is NONREACTIVE. No confirmatory testing is required. Blood Venous blood specimen / Unknown Venipuncture / Unknown 06/05/2025 4:20 PM EDT 06/05/2025 6:25 PM EDT Radha Velasquez APRN, CNM LAB BLOOD ORDERABLES Fi nal Result Performing Organization Address [facility]/ZIP Co de Phone Number [facility] [address] [place] [address] * Hepatitis C Antibody w/Reflex to HCV Quant PCR (06/05/2025 4:20 PM EDT) Pathologist [facility] Hepatitis C Antibody Negative Negative 06/05/2025 7:00 PM EDT [facility] Blood Venous blood specimen / Unknown Venipuncture / Unknown 06/05/2025 4:20 PM EDT 06/05/2025 6:25 PM EDT Radha Velasquez APRN, CNM LAB BLOOD ORDERABLES Fi nal Result Performing Organization Address [facility]/ZIP Co de Phone Number [facility] [address] [place] [address] * Neisseria gonorrhea DNA by PCR (06/05/2025 4:20 PM EDT) Pathologist [facility] Neisseria gonorrhea DNA PCR Result Not Detected Not Detected. 06/06/2025 2:51 PM EDT [facility] Swab Vaginal structure / Unknown Non-blood Collection / Unknown 06/05/2025 4:20 PM EDT 06/05/2025 6:11 PM EDT Narrative [facility] - 06/06/2025 2:51 PM EDT This test is performed by the Splice instrument for Real Time PCR C. trachomatis and N. gonorrhea. This test is FDA approved for use with endocervical, vaginal, and urine specimens. This test is used for clinical purposes. It should not be regarded as invesigational or for research. The [facility] is certified under the Clinical Laboratory Improvement Amendments of 1988 (CLIA-88) as qualified to perform high complexity clinical laboratory testing. Radha Velasquez APRN, CNM LAB MICROBIOLOGY - GENE RAL ORDERABLES Final Result Performing Organization Address [facility] [place] [address] * Hepatitis B Surface Antigen (06/05/2025 4:20 PM EDT) [facility] Hepatitis B Surf Antigen Negative Negative 06/05/2025 7:41 PM EDT [facility] Blood Venous blood specimen / Unknown Venipuncture / Unknown 06/05/2025 4:20 PM EDT 06/05/2025 6:25 PM EDT Radha Velasquez APRN, CNM LAB BLOOD ORDERABLES Fi nal Result Performing Organization Address [facility]/ZIP Co de Phone Number [facility] [address] [place] [address] * CBC W/O Differential (06/05/2025 4:20 PM EDT) WBC Count 8.09 3.70 - 10.30 10*3/uL LAB HEMATOLOGY METHOD 06/05/2025 6:40 PM EDT [facility] RBC Count 4.71 3.90 - 5.20 10*6/uL LAB HEMATOLOGY METHOD 06/05/2025 6:40 PM EDT [facility] HGB 13.8 11.2 - 15.7 g/dL LAB HEMATOLOGY METHOD 06/05/2025 6:40 PM EDT [facility] HCT 42.3 34.0 - 45.0 % LAB HEMATOLOGY METHOD 06/05/2025 6:40 PM EDT [facility] Platelet Count 323 155 - 369 10*3/uL LAB HEMATOLOGY METHOD 06/05/2025 6:40 PM EDT [facility] MCV 90 79 - 98 fL LAB HEMATOLOGY METHOD 06/05/2025 6:40 PM EDT [facility] MCH 29.3 26.0 - 32.0 pg LAB HEMATOLOGY METHOD 06/05/2025 6:40 PM EDT [facility] MCHC 32.6 30.7 - 35.5 g/dL LAB HEMATOLOGY METHOD 06/05/2025 6:40 PM EDT [facility] RDW 12.6 11.5 - 14.5 % LAB HEMATOLOGY METHOD 06/05/2025 6:40 PM EDT [facility] MPV 9.7 8.8 - 12.5 fL LAB HEMATOLOGY METHOD 06/05/2025 6:40 PM EDT [facility] nRBC 0.0 <=0.0 per 100 WBCs LAB HEMATOLOGY METHOD 06/05/2025 6:40 PM EDT [facility] Blood Venous blood specimen / Unknown Venipuncture / Unknown 06/05/2025 4:20 PM EDT 06/05/2025 6:08 PM EDT us Radha Velasquez APRN, CNM LAB BLOOD ORDERABLES Fi nal Result [facility] [address] [place] [address] * (ABNORMAL) TSH (06/05/2025 4:20 PM EDT) Thyroid Stimulating Hormone, Plasma 5.18(H) 0.40 - 4.20 uIU/mL 06/05/2025 6:56 PM EDT [facility] Blood Venous blood specimen / Unknown Venipuncture / Unknown 06/05/2025 4:20 PM EDT 06/05/2025 6:08 PM EDT Narrative [facility] - 06/05/2025 6:56 PM EDT Trimester Specific Ranges TSH ( IU/mL) 1st Trimester 0.1 - 3.0 2nd Trimester 0.19 - 4.06 3rd Trimester 0.3 - 3.7 Radha Velasquez APRN, GLORIA LAB BLOOD ORDERABLES Fi nal Result Performing Organization Address [facility]/ZIP Co de Phone Number [facility] [address] [place] [address] * T4, free (06/05/2025 4:20 PM EDT) Free T4, Plasma 1.1 0.8 - 1.7 ng/dL 06/05/2025 6:56 PM EDT [facility] Blood Venous blood specimen / Unknown Venipuncture / Unknown 06/05/2025 4:20 PM EDT 06/05/2025 6:08 PM EDT Narrative [facility] - 06/05/2025 6:56 PM EDT Free T4 Trimester Specific Ranges 1st Trimester 0.9 - 1.50 ng/dL 2nd Trimester 0.7 - 1.40 ng/dL 3rd Trimester 0.7 - 1.24 ng/dL Radha Velasquez APRN, ANDARE LAB BLOOD ORDERABLES Fi nal Result Performing Organization Address City/[facility]/ZIP Co de Phone Number [facility] [address] [place] [address] * Hemoglobin A1c (06/05/2025 4:20 PM EDT) Hemoglobin A1c 5.2 <5.7 % 06/05/2025 7:35 PM EDT [facility] Blood Venous blood specimen / Unknown Venipuncture / Unknown 06/05/2025 4:20 PM EDT 06/05/2025 6:24 PM EDT Narrative [facility] - 06/05/2025 7:35 PM EDT HA1C Interpretive Data: Diagnosis of Diabetes: Diabetic > or = 6.5% Pre-diabetic 5.7 to 6.4% Non-diabetic < or = 5.6% Glycemic Targets for Type I and Type II Diabetics: Non- Adults <7.0% Adults <6.0% Children and Adolescents <7.5% Source: [place] [employer]. Standards of medical care in diabetes,2017. Diabetes Care.2017:40 (suppl 1):S1-S135. Radha Velasquez APRN, CNM LAB BLOOD ORDERABLES Fi nal Result [facility] [address] [place] [address] * (ABNORMAL) Lipid Profile, Plasma (06/05/2025 4:20 PM EDT) Cholesterol, Plasma 117 <200 mg/dL 06/05/2025 6:56 PM EDT [facility] Comment: Cholesterol Reference Range (age >17 years): Desirable <200 mg/dL Borderline 200 to 239 mg/dL Undesirable >239 mg/dL HDL 38(L) >=50 mg/dL 06/05/2025 6:56 PM EDT [facility] Comment: HDL Cholesterol Reference Ranges (age >17 years): Female, acceptable > or = 50 mg/dL Male, acceptable > or = 40 mg/dL Triglycerides, Plasma 120 <150 mg/dL 06/05/2025 6:56 PM EDT [facility] Comment: Triglyceride Reference Range (age >17 years): Desirable: <150 mg/dL Borderline high: 150 to 199 mg/dL High: 200 to 499 mg/dL Very high: >499 mg/dL Increased risk of pancreatitis: >1000 mg/dL Cholesterol/HDL Ratio 3 06/05/2025 6:56 PM EDT [facility] LDL, Calculated 57 <100 mg/dL 6:56 PM EDT [facility] Comment: LDL Cholesterol Reference Range (age [...] 12 hours? No 06/05/2025 6:56 PM EDT [facility] Blood Venous blood specimen / Unknown Venipuncture / Unknown 06/05/2025 4:20 PM EDT 06/05/2025 6:08 PM EDT us Radha Velasquez APRN, CNM LAB BLOOD ORDERABLES Fi nal Result [facility] [address] [place] [address] * (ABNORMAL) Comprehensive metabolic panel (06/05/2025 4:20 PM EDT) Glucose, Plasma 89 74 - 99 mg/dL 06/05/2025 6:56 PM EDT [facility] BUN, Plasma 11 7 - 21 mg/dL 06/05/2025 6:56 PM EDT [facility] Creatinine, Plasma 0.77 0.60 - 1.10 mg/dL 06/05/2025 6:56 PM EDT [facility] BUN/Creatinine Ratio 14 06/05/2025 6:56 PM EDT [facility] Sodium, Plasma 142 136 - 145 mmol/L 06/05/2025 6:56 PM EDT [facility] Potassium, Plasma 4.1 3.6 - 4.9 mmol/L 06/05/2025 6:56 PM EDT [facility] Chloride, Plasma 105 97 - 107 mmol/L 06/05/2025 6:56 PM EDT [facility] CO2, Plasma 24 22 - 29 mmol/L 06/05/2025 6:56 PM EDT [facility] Anion Gap 13 6 - 16 mmol/L 06/05/2025 6:56 PM EDT [facility] Total Calcium, Plasma 9.5 8.9 - 10.2 mg/dL 06/05/2025 6:56 PM EDT [facility] Total Protein 7.0 6.3 - 7.9 g/dL 06/05/2025 6:56 PM EDT [facility] Albumin, Plasma 4.5 3.5 - 5.2 g/dL 06/05/2025 6:56 PM EDT [facility] AST, Plasma 27 10 - 35 U/L 06/05/2025 6:56 PM EDT [facility] ALT, Plasma 19 10 - 35 U/L 06/05/2025 6:56 PM EDT [facility] Alkaline Phosphatase, Plasma 96 35 - 104 U/L 06/05/2025 6:56 PM EDT [facility] Total Bilirubin, Plasma <0.2(L) 0.2 - 1.1 mg/dL 06/05/2025 6:56 PM EDT [facility] eGFRcr 109.9 mL/min/1.7 3m*2 06/05/2025 6:56 PM EDT [facility] Comment:Reported eGFRcr in m L/min/1.73m2 is based the CKD-EPI 2020 equation that does not use a race coefficient. Blood Venous blood specimen / Unknown Venipuncture / Unknown 06/05/2025 4:20 PM EDT 06/05/2025 6:08 PM EDT Radha Velasquez APRN, CNJuan LAB BLOOD ORDERABLES Fi nal Result [facility] [address] [place] [address] * (ABNORMAL) Referred ThinPrep Pap and HPV (SO) (01/05/2025 9:12 AM EST) Pap, Source Cx/Vagina 01/12/2025 9:23 PM EST [facility] ([facility]) EER Referred ThinPrep Pap and HPV See Note 01/12/2025 9:23 PM EST [facility] ([facility]) PAP, THINPREP Abnormal(A) 01/12/2025 9:23 PM EST [facility] ([facility]) High Risk HPV Abnormal(A) 01/12/2025 9:23 PM EST [facility] ([facility]) HPV Genotype Normal 01/12/2025 9:23 PM EST [facility] ([facility]) Swab Vaginal and cervical cytologic material / Unknown Non-blood Collection / Unknown 01/05/2025 9:12 AM EST 01/05/2025 12:52 PM EST Narrative [facility] ([facility]) - 01/12/2025 9:23 PM EST Authorized individuals can access the [employer] Enhanced Report with an [employer] Connect account using the following link. Your local lab can assist you in obtaining the patient report if you don't have a Connect account. [email or web address] Performed By: [facility] [address] [place] [id number] Per Diem: Oniel Ramirez MD, PhD CLIA Number: [id number] SPECIMEN PART A. Cervical, Endocervical, Vaginal, ThinPrep Pap ([employer]) CYTOLOGY HX Date of Last Menstrual Period: n FINAL DIAGNOSIS GENERAL CATEGORY: Abnormal INTERPRETATION: Low grade squamous intraepithelial lesion (LSIL). SPECIMEN ADEQUACY:Satisfactory for evaluation. Endocervical/transformation zone component present. Electronically Signed Out : Mulugeta Swanson MD Performed by: [facility] [place] [address] Dasia Casey MD, HR-HPV: Positive Test performed by the FDA-approved [place] (Gen-Probe) APTIMA HPV test, which detects HPV genotypes: 16, 18, 31, 33, 35, 39, 45, 51, 52, 56, 58, 59, 66, and 68. This assay has been cleared for the specimen types listed below. Other specimen types have not been validated for this assay. -Clinician-collected ThinPrep Pap specimens. Performed by: [facility] [address] [place] [address] Dasia Casey MD, HPV TYPE 16: Negative HPV TYPE 18/45: Negative Testing performed by the FDA-approved APTIMA HPV 16 18/45 Genotype Assay. This assay has been cleared for the specimen types listed below. Other specimen types have not been validated for this assay. -Clinician-collected ThinPrep Pap specimens. Performed by: [facility] [address] [place] [address] Dasia Casey MD, Tawnya Grande APRN, DNP LAB REF LAB BLOOD AND F LUID ORD Final Result [facility] ([id number] [id number] from Last 3 Months or Most Recently Relevant to Health Maintenance Insurance [employer] MEDICAID Advance Directives * Full Code (Latest Code Status on File) Date Activated Date Inactivated Comments 07/25/2022 1:53 AM 07/26/2022 2:36 PM Question Answer Comments Patient has decision-making capacity? 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
--- OUTSIDE RECORDS SUMMARY | 2025-06-17 16:03 | XMS_ITS | Encounter Summary ---
Author Organization Healthcare Address [address] [place] [address] Care Team Providers Care Pharmacy Clinical Specialist Name Role Phone Provider, [facility] Primary Care Provid er Unavailable Reason for Visit * Reason Onset Date Comments HCN - Patient Message 06/02/2025 Encounter Details Date Type Department Care Team (Late st Contact Info) Description 06/02/2025 Telephone Obstetrics & Gynecology [address] [place] [address] Malick Godinez MD [address] [place] [address] HCN - Patient Message Social History Tobacco Use Types Packs/Day Years Used Date Smoking Tobacco: Never Smokeless Tobacco: Never Alcohol Use Standard Drinks/Week Comments Not Currently 0 (1 standard drink = 0.6 oz pur e alcohol) PHQ-2 Answer Date Recorded Patient Health Questionnaire-2 Score 0 06/05/2025 [place] Depression Scale Answer Date Recorded [place] Depression Scale Total 2 01/06/2022 The thought [...] drink first 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) to steady your nerves or to get [...] Moran RN documented as of this encounter Miscellaneous Notes * Telephone Encounter - Rhona Becker - 06/05/2025 10:05 AM EDT Called patient and she is coming in today for visit * Telephone Encounter - Qasim Zuniga - 06/02/2025 4:32 PM EDT Clinical Concern/Question Reason for Call: pt is needing to speak with the nurse she thinks she has a yeast infection and would like to know if something can be called in or does she need an appt Best contact number: [phone] (mobile) Optimal time of day to reach caller: ANYTIME Additional comments/information from caller: None Note: Please do not reply to this message. Follow-up communication and further actions as a result of this message need to be communicated with the patient directly, if the patient is not active onMyChart. If the patient is active on MyChart, they will receive notification of the communication/outcome via MyChart. documented in this encounter Plan of Treatment Upcoming Encounters Date Type Department Care Team (Late st Contact Info) Description 07/27/2025 9:00 AM EDT Office Visit Obstetrics & Gynecology [address] [place] [address] Radha Velasquez APRN, GLORIA [address] [facility] [address] [place] [address] 08/11/2025 9:15 AM EDT Procedure Visit Obstetrics & Gynecology [address] [place] [address] Malick Godinez MD [address] [place] [address] documented as of this encounter [...] documented as of this encounter Care Teams Pharmacy Clinical Specialist Relationship Specialty Start Date End Date Provider, Jahaira Gomez PCP - General 05/17/21 documented as of this encounter
--- OUTSIDE RECORDS SUMMARY | 2025-06-17 16:03 | XMS_ITS | Encounter Summary ---
Author Organization Healthcare Address [address] [place] [address] Care Team Providers Care Hydro Excavation Operator Name Role Phone Provider, [facility] Primary Care Provid er Unavailable Encounter Details Date Type Department Care Team (Late st Contact Info) Description 06/06/2025 Results Follow-Up Obstetrics & Gynecology [address] [place] [address] Radha Velasquez, CONTOUR SANDER, CN [address] [facility] [address] [place] [address] Social History Tobacco Use Types Packs/Day Years Used Date Smoking Tobacco: Never Smokeless Tobacco: Never Alcohol Use Standard Drinks/Week Comments Not Currently 0 (1 standard drink = 0.6 oz pur e alcohol) PHQ-2 Answer Date Recorded Patient Health Questionnaire-2 Score 0 06/05/2025 [place] Depression Scale Answer Date Recorded [place] Depression Scale Total 2 01/06/2022 The thought [...] drink first 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 0 07/25/2022 CAGE Questionnaire Score 0 022 Comments No Sex and Gender Information Value Date Recorded Sex Assigned at Female 05/02/2021 9:17 AM EDT Legal Sex Female 7:04 PM EDT Gender Identity Female 05/02/2021 9:17 AM EDT Sexual Orientation Straight 05/02/2021 9: 17 AM EDT documented as of this encounter Plan of Treatment Upcoming Encounters Date Type Department Care Team (Late st Contact Info) Description 07/27/2025 9:00 AM EDT Office Visit Obstetrics & Gynecology [address] [place] [address] Radha Velasquez, CONTOUR SANDER, CNM [address] [address] 08/11/2025 9:15 AM EDT Procedure Visit Obstetrics & Gynecology [address] [place] [address] Malick Godinez MD [address] [place] [address] Scheduled Orders Name Type Priority Associated Diagnoses Orde r Schedule TSH Lab Routine Hypothyroidism, unspecified type Expected: 07/18/2025 (Approximate), Expires: 12/08/2026 T4, free Lab Routine Hypothyroidism, unspecified type Expected: 07/18/2025 (Approximate), Expires: 12/08/2026 documented as of this encounter Visit Diagnoses Diagnosis Hypothyroidism, unspecified type- Primary HSV-2 seropositive Vulvovaginal candidiasis documented in this encounter Additional Health Concerns Assessment Noted Time PHQ-9 Depression Total Score: 0 04/13/20 25 8:41 AM EDT A fall risk assessment has been complete d for the patient 06/05/2025 3:58 PM EDT A Body Mass Index follow-up plan has been documented for the patient 06/05/2025 4:23 PM EDT documented as of this encounter Care Teams Hydro Excavation Operator Relationship Specialty Start Date End Date Provider, Jahaira Gomez PCP - General 05/17/21 documented as of this encounter
--- OUTSIDE RECORDS SUMMARY | 2025-06-17 16:03 | XMS_ITS | Encounter Summary ---
Author Organization Healthcare Address [address] [place] [address] Care Team Providers Care Dentistry Professor Name Role Phone Provider, [facility] Primary Care Provid er Unavailable Reason for Visit * Reason Onset Date Comments HCN - Patient Message 06/06/2025 Encounter Details Date Type Department Care Team (Late st Contact Info) Description 06/06/2025 Telephone Obstetrics & Gynecology [address] [place] [address] Malick Godinez MD [address] [place] [address] HCN - Patient Message Social History Tobacco Use Types Packs/Day Years Used Date Smoking Tobacco: Never Smokeless Tobacco: Never Alcohol Use Standard Drinks/Week Comments Not Currently 0 (1 standard drink = 0.6 oz pur e alcohol) PHQ-2 Answer Date Recorded Patient Health Questionnaire-2 Score 0 06/05/2025 [place] Depression Scale Answer Date Recorded [place] Depression Scale Total 2 01/06/2022 The thought [...] drink first t hay in the 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 0 07/25/2022 CAGE Questionnaire Score 0 022 Comments No Sex and Gender Information Value Date Recorded Sex Assigned at Female 05/02/2021 9:17 AM EDT Legal Sex Female 7:04 PM EDT Gender Identity Female 05/02/2021 9:17 AM EDT Sexual Orientation Straight 05/02/2021 9: 17 AM EDT documented as of this encounter Miscellaneous Notes * Telephone Encounter - Amna Rose - 06/08/2025 10:23 AM EDT See results. * Telephone Encounter - Heavenly Hale - 06/08/2025 10:10 AM EDT Clinical Concern/Question Reason for Call: Patient is returning a call regarding results Best contact number: [phone] (mobile) Optimal time of day to reach caller: ANYTIME Additional comments/information from caller: Not Applicable Note: Please do not reply to this message. Follow-up communication and further actions as a result of this message need to be communicated with the patient directly, if the patient is not active onMyChart. If the patient is active on MyChart, they will receive notification of the communication/outcome via [employer]. * Telephone Encounter - Amna Rose - 06/06/2025 10:59 AM EDT See results. * Telephone Encounter - Qasim Zuniga - 06/06/2025 8:53 AM EDT Clinical Concern/Question Reason for Call: pt states she is returning a call about test results Best contact number: [phone] (mobile) Optimal time of day to reach caller: ANYTIME Additional comments/information from caller: None Note: Please do not reply to this message. Follow-up communication and further actions as a result of this message need to be communicated with the patient directly, if the patient is not active onMyChart. If the patient is active on MyChart, they will receive notification of the communication/outcome via [employer] documented in this encounter Plan of Treatment Upcoming Encounters Date Type Department Care Team (Late st Contact Info) Description 07/27/2025 9:00 AM EDT Office Visit Obstetrics & Gynecology [address] [place] [address] Radha Velasquez, ACCOUNT PLANNER, CNM [address] [facility] [address] [place] [address] 08/11/2025 9:15 AM EDT Procedure Visit Obstetrics & Gynecology [address] [place] [address] Malick Godinez MD [address] [place] [address] documented as of this encounter [...] documented as of this encounter Care Teams Dentistry Professor Relationship Specialty Start Date End Date Provider, Jahaira Gomez PCP - General 05/17/21 documented as of this encounter
--- NOTE | 2025-06-17 16:07 | CT_ITS ---
PROCEDURE INFORMATION: Exam: CTA Abdomen and Pelvis With Contrast Exam date and time: 06/17/2025 4:57 PM Age: 25 years old Clinical indication: Other: Bleeding TECHNIQUE: Imaging protocol: Computed tomographic angiography of the abdomen and pelvis with contrast. Exam focused on the arteries. 3D rendering (Not supervised by radiologist): MIP and/or 3D reconstructed images were created by the technologist. Radiation optimization: All CT scans at this facility use at least one of these dose optimization techniques: automated exposure control; mA and/or kV adjustment per patient size (includes targeted exams where dose is matched to clinical indication); or iterative reconstruction. Contrast material: ISOVUE; Contrast volume: 80 ml; Contrast route: INTRAVENOUS (IV); COMPARISON: CT ABDOMEN PELVIS W CON 08/24/2024 11:25 AM FINDINGS: Lungs: Lung bases are clear. Aorta: Aorta is normal in course and caliber. No acute pathology in the aorta. Celiac trunk and mesenteric arteries: Celiac trunk is patent and without stenosis, occlusion, or dissection. Superior mesenteric artery is completely patent and without stenosis or occlusion. Inferior mesenteric artery is completely patent and without stenosis or occlusion. Renal arteries: No dissection, significant stenosis, or occlusion in the right renal artery. No dissection, significant stenosis, or occlusion in the left renal artery. Right iliac arteries: Right common iliac artery is patent and without stenosis or occlusion. Right internal iliac artery is patent and without stenosis or occlusion. Right external iliac artery is patent and without stenosis or occlusion. Right femoral/popliteal arteries: Right common femoral artery is patent and without stenosis or occlusion. Left iliac arteries: Left common iliac artery is patent and without stenosis or occlusion. Left internal iliac artery is patent and without stenosis or occlusion. Left external iliac artery is patent and without stenosis or occlusion. Left femoral/popliteal arteries: Left common femoral artery is patent and without stenosis or occlusion. Liver: Liver has a normal contour and parenchymal enhancement. No hepatomegaly or liver masses. Gallbladder and biliary ducts: Gallbladder is adequately distended. No calcified gallstones, wall thickening, sludge, or pericholecystic fluid. No masses. There is no evidence of biliary ductal dilation. Pancreas: Pancreas has a normal size and parenchymal morphology. No masses, ductal dilation, or peripancreatic inflammation/free fluid. Spleen: Spleen has a normal size and morphology. No masses. Adrenal glands: Adrenal glands have a normal size and morphology. No concerning nodules or masses. Kidneys and ureters: Stable bilateral symmetric hydronephrosis with new bilateral ureteral stents which are in place. No hydroureter. Kidneys otherwise have normal corticomedullary differentiation without focal lesions or perinephric inflammatory changes. Single nonobstructive right renal collecting system stone, measuring 0.5 x 0.5 cm. Stomach and bowel: No bowel obstruction or significant bowel wall thickening. Stomach is decompressed and difficult to evaluate. Duodenum is unremarkable. Appendix: A normal appendix is identified. Intraperitoneal space: There is a very small amount of physiologic free pelvic fluid present. No intraperitoneal fluid collections. There is no free intraperitoneal air. Lymph nodes: No concerning adenopathy. Urinary bladder: Bladder is decompressed and difficult to evaluate. Reproductive: There has been a tubal ligation. Reproductive organs are unremarkable as visualized. Bones/joints: No acute skeletal abnormality or aggressive osseous lesion. Soft tissues: No acute soft tissue findings. IMPRESSION: 1. No acute abdominopelvic pathology. 2. No evidence for intra-abdominal or GI bleeding. 3. No acute vascular pathology, stenosis, or occlusion. 4. Stable bilateral symmetric hydronephrosis with new bilateral ureteral stents which are in place. No hydroureter. Kidneys otherwise have normal corticomedullary differentiation without focal lesions or perinephric inflammatory changes.
[2025-06-17] MEDS: 0.9 % SODIUM CHLORIDE 1000ML 1,000 ML 999 ML IV (16:18)
[2025-06-17] MEDS: ONDANSETRON 4MG/2ML VIAL 4 MG IV (16:18)
[2025-06-17] MEDS: KETOROLAC 30MG/ML VIAL 15 MG IV (16:20)
[2025-06-17 16:21] LABS: Microscopic, Urine URINE MICROSCOPIC (MICROSCOPIC)
[2025-06-17 16:21] LABS: Hematocrit 38.7 % (37.0-47.0); Hemoglobin 13.0 g/dL (12.2-16.2); Immature Granulocytes % 0.3 %; Mean Corpuscular HGB Conc 33.6 g/dL (31.8-35.4); Mean Corpuscular Hemoglobin 29.8 pg (27.0-31.2); Mean Corpuscular Volume 88.8 fl (81-99); Nucleated Red Blood Cells % 0 %; Platelet Count 307 K/mm3 (142-424); Red Blood Count 4.36 M/mm3 (4.20-5.40); Red Cell Distribution Width-SD 40.7 fL; White Blood Count 11.5 K/mm3 (4.8-10.8)
--- NOTE | 2025-06-17 16:23 | ED_ITS ---
<Statement entered by Lizette Barba DO - 06/19/25 13:42> I was consulted by the GUILLE, and we discussed the complexity of problems being addressed. I approve the treatment and management plan for this patient's care in the emergency department, thus performing a substantial portion of the medical decision making. Lizette Barba DO Discharge Plan Disposition Patient Disposition: Home, Self-Care Condition: Good Prescriptions Prescriptions: New oxycodone 5 mg tablet 5 mg PO Q8H PRN (Reason: pain) Qty: 6 0RF nitrofurantoin monohyd/m-cryst [Macrobid] 100 mg capsule 100 mg PO BID 7 Days Qty: 14 0RF Rx Instructions: must administer with a meal/food Referrals Follow up/Referrals: Chip Rivera MD [Primary Care Provider, Medical] - See instructions Activity Restrictions/Add. Instructions Additional Instructions/Restrictions: Increase fluids and rest. Take medication as directed. Please call Dr. Mejia on Thursday. Clinical Impressions Clinical Impression: Urinary tract infection Stand Alone Forms Stand Alone Forms: Work/School Release Instructions Patient Instructions: DI for Urinary Tract Infection (UTI) Print Language Print Language: Portuguese Discharge ED Provider: Lizette Barba General Adult HPI General Chief complaint: Urogenital-Female Stated complaint: stints put in on 8-8 for kidneys Time Seen by Provider: 06/17/25 16:02 Mode of Arrival: Ambulatory Source of Information: Patient Description of Symptoms (Recalled from ER Triage Doc. by RN): Pt presents for evaluation evaluation of bloody urine and increased pain after have stents placed for hydronephrosis by Dr. Bang at [facility]. Pt states she has had stents before but this feels different History of Present Illness HPI narrative: 25-year-old female presents to the ED today for complaint of blood in her urine and increased pain after she had bilateral cyst stents placed in both kidneys for hydronephrosis. Dr. MEJIA in [place] did her surgery. She says she has had stents before but did not have any of the symptoms. She says she was given tramadol for pain but it is not working. Patient tells me she has pain in her low back, pain in her vaginal area, she is urinating all blood. She has had no fevers but has had nausea but no vomiting. Related Data Previous Rx's ?Medication ?Instructions ?Recorded nitrofurantoin 100 mg PO BID 7 days #14 cap s 06/17/25 monohydrate/macrocrystals 100 mg capsule (Macrobid) oxycodone 5 mg tablet 5 mg PO Q8H PRN pain #6 tabs 06/17/25 Allergies Allergy/AdvReac Type Severity Reaction Status Date / Time No Known Drug Allergies Allergy Unknown -- Verified 08/24/24 10:02 [facility] Disclaimer: The information contained in this section may have been updated after the patient was seen, as this information can be updated by other users. Medical History (Updated 06/17/25 @ 18:33 by Rosy Marroquin (ED), FOURDRINIER MACHINE OPERATOR) Anxiety Contusion of left breast Viral syndrome Hyperemesis gravidarum Negative test Surgical History (Updated 12/30/23 @ 13:04 by Marcy Watts) No significant past surgical history Family History Other No significant family history Social History Smoking Status: Never smoker alcohol intake: never substance use type: denies use current occupational status: other Travel in the last 8 weeks?: None adopted: No caregiver/support person: No foster care: No housing: house marital status: single Have you lived/traveled outside US in past 30 days?: No Contact w/someone who lives/traveled outside US past 30 days?: No Exposure to someone with infectious disease in past 14 days?: No Do you have a fever (greater than 100.4 F or 38 C)?: No Have you tested positive for COVID-19?: No Exposed to someone with COVID-19 in past 14 days?: No Do you have a sore throat?: No Do you have a cough?: No Do you have any weakness?: No Do you have any diarrhea?: No Are you experiencing any unusual bleeding?: No Do you have any muscle aches/pain?: No Do you have any abdominal pain?: No Are you experiencing loss of taste or smell?: No Other Medical History Have you received the Flu Vaccine for this season: No Have you received the Pneumonia Vaccine: No ROS Obtained: Yes Systems reviewed as appropriate & no additional complaints except as documented Constitutional Constitutional: Reports as per HPI Physical Exam General General appearance: alert Head Head exam: normocephalic Eye Eye exam: Present PERRL and EOMI ENT ENT exam: Present mucous membranes moist Neck Neck exam: Present full ROM and trachea midline Respiratory Respiratory exam: Present normal lung sounds bilaterally Cardiovascular Cardiovascular exam: Present regular rate, normal rhythm, normal heart sounds, +S1 and +S2 Abdominal Exam Abdominal exam: Present soft and normal bowel sounds Abdominal tenderness: Present suprapubic Extremities Exam Extremities exam: Present normal inspection and normal capillary refill Neurological Exam Neurological exam: Present alert and oriented X3 Skin Skin exam: Present warm, dry and intact Medical Decision Making Medical Records Screening: Per USPSTF and CDC recommendations, given the prevalence of disease in our region, it is our hospital?s policy to screen for HIV and viral Hepatitis for all patients aged 18 and over and those with ongoing risk factors. Tevin Inquiry Pt receiving controlled substance: No Vital Signs: 06/17/25 15:59 06/17/25 16:15 06/17/25 16:30 Temperature 98.2 F Temperature Source Oral Pulse Rate 76 93 H Pulse Rate [Right] 95 H Respiratory Rate 18 17 Blood Pressure 120/91 H Blood Pressure [Right Arm] 119/79 Blood Pressure Mean [Right Arm] 92 Blood Pressure Source Blood Pressure Source [Right Arm] Automatic Cuff Blood Pressure Position [Right Arm] Sitting 02 Sat by Pulse Oximetry 100 99 100 Oxygen Delivery Method Room Air 06/17/25 17:30 06/17/25 18:03 06/17/25 18:15 Temperature Temperature Source Pulse Rate 66 74 56 L Pulse Rate [Right] Respiratory Rate 17 Blood Pressure 111/84 111/83 Blood Pressure [Right Arm] Blood Pressure Mean [Right Arm] Blood Pressure Source Blood Pressure Source [Right Arm] Blood Pressure Position [Right Arm] 02 Sat by Pulse Oximetry 99 99 100 Oxygen Delivery Method Room Air Room Air Room Air 06/17/25 18:37 Temperature 98.7 F Temperature Source Oral Pulse Rate 74 Pulse Rate [Right] Respiratory Rate 19 Blood Pressure 116/74 Blood Pressure [Right Arm] Blood Pressure Mean [Right Arm] Blood Pressure Source Automatic Cuff Blood Pressure Source [Right Arm] Blood Pressure Position [Right Arm] 02 Sat by Pulse Oximetry Oxygen Delivery Method Room Air Lab Data Lab Results 06/17/25 16:03: Urine Color Yellow, Urine Appearance Clear, Urine pH 6.5, Ur Specific [place] 1.020, Urine Protein 3+ A, Urine Glucose (UA) Negative, Urine Ketones 1+, Urine Blood 3+ A, Urine Nitrate Positive A, Urine Bilirubin 1+ A, Urine Urobilinogen 2.0, Ur Leukocyte Esterase 2+ A, Urine RBC Tntc, Urine WBC , Ur Squamous Epith Cells , Urine Bacteria 06/17/25 16:10: WBC 11.5 H, RBC 4.36, Hgb 13.0, Hct 38.7, MCV 88.8, MCH 29.8, MCHC 33.6, RDW 12.5, Plt Count 307, MPV 9.8, Neut % (Auto) 63.0, Lymph % (Auto) 27.0, [place] % (Auto) 8.0, Eos % (Auto) 1.1, Baso % (Auto) 0.6, Neut # (Auto) 7.2, Lymph # (Auto) 3.1, [place] # (Auto) 0.9, Eos # (Auto) 0.1, Baso # (Auto) 0.1, S odium 134 L, Potassium 4.0, Chloride 102, Carbon Dioxide 25, Anion Gap 11.0, BUN 23 H, Creatinine 1.20 H, Estimated Creat Clear 66, Estimated GFR 55 L, Est GFR ( Amer) 66, Glucose 97, Calcium 8.9, Magnesium 1.8, Total Bilirubin 0.3, AST 25, ALT 14, Alkaline Phosphatase 73, Total Protein 7.0, Albumin 4.4, Globulin 2.6, Albumin/Globulin Ratio 1.7, Lipase 89 06/17/25 16:18: Lactate 0.8 06/17/25 16:10 06/17/25 16:10 Orders (Tests/Meds): ED MEDICATIONS Discontinued Medications Generic Name Dose Route Start Last Admin Trade Name Freq PRN Reason Stop Dose Admin Hydrocodone Bitart/Acetaminophen 2 tab 06/17/25 18:29 06/17/25 18:33 Hydrocodone/Apap 5/325 Mg Tablet PO 06/17/25 18:30 2 tab ONCE ONE Administration Sodium Chloride 1,000 mls @ 999 mls/hr 06/17/25 16:08 06/17/25 16:18 Sod Chlor 0.9% 1000ml Bag IV 06/17/25 17:08 999 mls/hr .Q1H1M ONE Administration Ceftriaxone Sodium 2 gm/ 100 mls @ 200 mls/hr 06/17/25 17:15 06/17/25 17:22 Sodium Chloride IV 06/27/25 17:14 200 mls/hr Q24H MARCUS Administration Iopamidol 80 ml 06/17/25 16:57 06/17/25 16:58 Iopamidol-370 (76%);100ml Bottle IV 06/17/25 16:58 80 ml ONCE ONE Administration Ketorolac Tromethamine 15 mg 06/17/25 16:19 06/17/25 16:20 Ketorolac 30mg/Ml Vial IV 06/17/25 16:20 15 mg ONCE ONE Administration Morphine Sulfate 4 mg 06/17/25 16:08 06/17/25 16:24 Morphine 4mg/Ml Syringe IV 06/17/25 16:09 4 mg ONCE ONE Administration Ondansetron HCl 4 mg 06/17/25 16:08 06/17/25 16:18 Ondansetron 4mg/2ml Vial IV 06/17/25 16:09 4 mg ONCE ONE Administration Sodium Chloride 50 ml 06/17/25 16:57 06/17/25 16:58 0.9 % Sodium Chloride 50 Ml Vial IV 06/17/25 16:58 50 ml ONCE ONE Administration Sodium Chloride 10 ml 06/17/25 16:57 06/17/25 16:58 Sodium Chloride 0.9% 10ml Syr (Rad Only) IV 07/17/25 16:56 10 ml NEEDED PRN Administration Maintain IV Site ORDERS Category Date Time Status CT angio abdomen pelvis Stat Cat Scan 06/17/25 16:07 Completed POCUS Point of Care (ER Only) Stat Exams 06/17/25 16:31 Completed CBC [Complete Blood Count Auto Diff] Stat Lab 06/17/25 16:10 Completed Comprehensive Metabolic Panel Stat Lab 06/17/25 16:10 Completed Lactic Acid Stat Lab 06/17/25 16:18 Completed Lipase Stat Lab 06/17/25 16:10 Completed Magnesium Stat Lab 06/17/25 16:10 Completed Urinalysis and Microscopic Stat Lab 06/17/25 16:03 Completed Urine Culture Stat Micro 06/17/25 16:03 Received Medical Decision Narrative: patient is a 25-year-old female presenting to the emergency department for evaluation of dysuria, blood in her urine, pain in her vaginal area and in her low back with nausea after she had 2 stents placed yesterday and both kidneys. She says her pain medication is not working at all. Dr. Mejia placed the stents yesterday.. Patient is hemodynamically stable and nontoxic-appearing upon arrival, afebrile. Differential diagnosis includes surgical problem, postop bleeding, among others. Workup will be conducted with hematologic labs, specific imaging. Initial inventions include crystalloid bolus, analgesics. Initial workup reviewed by me hematologic labs are remarkable for elevated white count at 11.5, BUN 23, creatinine 1.2, 3+ blood in her urine along with leukocytes and nitrates positive. Her CT scan was okay with her ultrasound by Dr. Barba being normal for having stent placements. Please see formal report for radiology read. Upon repeat evaluation patient's pain is improved. Patient will be given pain medication by Dr. Barba. Patient was given Rocephin here in the ED along with pain medication. She will be sent home with antibiotics as well. Patient is safe for discharge home. I have given her return precautions and she has been told to call Dr. Mejia on Thursday. Critical Care Critical Care Time Critical Care Time: No
[2025-06-17] MEDS: MORPHINE 4MG/ML SYRINGE 4 MG IV (16:24)
[2025-06-17 16:27] LABS: Albumin Level 4.4 g/dl (3.5-5.0); Chloride 102 mmol/L (98-107); Sodium 134 mmol/L (136-145)
[2025-06-17 16:27] LABS: Color,Urine YELLOW (Yellow); Glucose,Urine (UA) Negative (Negative); Ketones,Urine 1+ (Negative); Leukocyte Esterase,Urine 2+ (Negative); PH,Urine 6.5 (5.0-8.5); Protein,Urine 3+ (Negative); Specific Gravity, Urine 1.020 (1.005-1.030); Urobilinogen,Urine 2.0 EU/dl (0.2)
[2025-06-17 16:28] LABS: Potassium 4.0 mmoL/L (3.5-5.1)
[2025-06-17 16:30] LABS: Alanine Aminotransferase 14 U/L (12-78); Anion Gap 11.0 mEq/L (5-15); Aspartate Amino Transferase 25 U/L (14-36); Bilirubin,Total 0.3 mg/dl (0.2-1.3); Blood Urea Nitrogen 23 mg/dl (7-17); Carbon Dioxide 25 mmol/L (22.0-30.0); Creatinine Clearance Estimated 66 mL/min (50-200); Creatinine,Serum 1.20 mg/dl (0.52-1.04); Estimated Glomerular Filt Rate 55 ml/min (>60); GFR (African American) 66 ML/MIN (>60)
[2025-06-17 16:31] LABS: Albumin/Globulin Ratio 1.7 (1.1-1.8); Alkaline Phosphatase 73 U/L (38-126); Calcium 8.9 mg/dl (8.4-10.2); Globulin 2.6 g/dL (1.3-3.2); Glucose 97 mg/dl (74-100); Lipase 89 U/L (23-300); Magnesium 1.8 mg/dl (1.6-2.3); Total Protein,Serum 7.0 g/dl (6.3-8.2)
[2025-06-17 16:32] LABS: Bilirubin,Urine 1+ (Negative)
--- NOTE | 2025-06-17 16:50 | PC.NURSE ---
pt going for CT at this time via wheelchair with mammography technologist
[2025-06-17] MEDS: SODIUM CHLORIDE 0.9% 10ML SYR (RAD ONLY) 10 ML IV (16:58)
[2025-06-17] MEDS: 0.9 % SODIUM CHLORIDE 50 ML VIAL IV (16:58)
[2025-06-17] MEDS: IOPAMIDOL-370 (76%);100ML BOTTLE 80 ML IV (16:58)
[2025-06-17 17:06] LABS: RBC,Urine TNTC #/hpf (0-3)
[2025-06-17] MEDS: HYDROCODONE/APAP 5/325 MG TABLET 2 TAB PO (18:33)
== END 2025-06-17 18:42 | disposition home or self-care (01) ==
PROVIDERS: Nurse Practitioner; Emergency Provider Student in an Organized Health Care Education/Training Program; PCP Family Medicine
DX: N39.0 Urinary tract infection, site not specified (principal); R10.819 Abdominal tenderness, unspecified site; R31.9 Hematuria, unspecified; R30.0 Dysuria; M54.59 Other low back pain
CPT/HCPCS: 74174; 80053; 81001; 83605; 83690; 83735; 85025; 87086; 96361; 96365; 96375; 99285; J0696; J1885; J2270; J2405; J7030; Q9967

== ENCOUNTER 2025-09-14 13:22 | Outpatient (CLI) | payer OTHER, SELFPAY ==
--- OUTSIDE RECORDS SUMMARY | 2025-09-14 13:29 | XMS_ITS | Clinical Summary ---
Author Organization [facility] Address [address] [place] [address] Care Team Providers Care Personal Care Assistant Name Role Phone Provider, No Known Primary [...] - 3-dose series) 2015 PAP SMEAR 2021 INFLUENZA VACCINE 06/09/2025 10/03/2019 TDAP/TD VACCINES (3 - Td or Tdap) 06/12/2032 06/12/2022, 10/03/2019 CHLAMYDIA SCREENING Discontinued 03/11/2022 HEPATITIS C SCREENING Completed 03/11/2022 , 03/11/2022, 05/17/2021 Pneumococcal Vaccine 0-49 Aged Out No longer eligible based on patient's age to complete this topic Procedures Procedure Name Priority Date/Time Associated Diagnosis Comments SCANNED - LABS 06/17/2025 from Last 3 Months Results * LABS SCANNED (06/17/2025) Chip Rivera MD LAB BLOOD ORDERABLES Fin al Result from Last 3 Months Insurance PASSPORT BY NESS Advance Directives * CPR (Attempt to Resuscitate) (Latest Code Status on File) Date Activated Date Inactivated Comments 07/22/2022 4:33 PM 07/24/2022 10:34 AM Question Answer Comments Code Status (Patient has no pulse and is not breathing): CPR (Attempt to Resuscitate) Medical Interventions (Patie nt has pulse or is breathing): Full Support Care Teams Personal Care Assistant Relationship Specialty Start Date End Date Provider, No Known [facility] [place] [address] PCP - General 06/08/19
--- OUTSIDE RECORDS SUMMARY | 2025-09-14 13:29 | XMS_ITS | Encounter Summary ---
Author Organization Healthcare Address [address] [place] [address] Care Team Providers Care Environmental Inspector Name Role Phone Provider, [facility] Primary Care Provid er Unavailable Encounter Details Date Type Department Care Team (Late st Contact Info) Description 06/06/2025 Results Follow-Up Obstetrics & Gynecology [address] [place] [address] Radha Velasquez, BOOM STICK MAN, CN [address] [facility] [address] [place] [address] Social History Tobacco Use Types Packs/Day Years Used Date Smoking Tobacco: Never Smokeless Tobacco: Never Alcohol Use Standard Drinks/Week Comments Not Currently 0 (1 standard drink = 0.6 oz pur e alcohol) PHQ-2 Answer Date Recorded Patient Health Questionnaire-2 Score 0 06/05/2025 [place] Depression Scale Answer Date Recorded [place] Depression Scale Total 2 01/06/2022 The thought [...] drink first t hay in the 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
--- OUTSIDE RECORDS SUMMARY | 2025-09-14 13:29 | XMS_ITS | Clinical Summary ---
Author Organization Healthcare Address [address] [place] [address] Care Team Providers Care Creative Project Manager Name Role Phone Provider, Jahaira [place] Primary Care Provid er Unavailable Allergies No known active allergies Medications levothyroxine (Synthroid, Levoxyl) 50 MCG tabletIndications :Hypothyroidism, unspecified type Take 1 tablet by mouth daily before breakfast. 90 tablet 4 06/06/2025 Active valACYclovir (Valtrex) 500 MG tabletIndications :HSV-2 seropositive Take 1 tablet by mouth daily. 90 tablet 3 06/08/2025 06/08/20 26 Active Active Problems Problem Noted Date Diagnosed Date premature rupture of membranes (PPROM) with unknown onset of labor 07/25/2022 Hypothyroid in , antepartum 08/07/2021 Low weight gain during , antepartum Supervision of other normal , antepartu m 06/25/2021 Encounters Date Type Department Care Team Description 08/31/2025 Telephone Obstetrics & Gynecology [address] [place] [address] Malick Godinez MD from Last 3 Months Immunizations Immunization Administration [...] Recorded Patient Health Questionnaire-2 Score 0 06/05/2025 [place] Depression Scale Answer Date Recorded [place] Depression Scale Total 2 01/06/2022 The thought [...] drink first t hay in the 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) to steady your nerves or to get [...] 06/05/2025 3:57 PM EDT Plan of Treatment Health Maintenance Due Date Last Done Comments [facility]-/Child/Adol SDOH Screenings 2000 CUL-VHIBA-65 Vaccine (#1) 2005 [facility]-Varicella Vaccines (1 of [...] Procedure Name Priority Date/Time Associated Diagnosis Comments HEPATITIS C ANTIBODY W/REFLEX TO HCV QUANT PCR Routine 06/05/2025 4:20 PM EDT Screening examination for STD (sexually transmitted disease) HIV 1/2 ANTIBODY/ANTIGEN SCREEN WITH REFLEX TO HIV I/II DIFFERENTIATION Routine 06/05/2025 4:20 PM EDT Screening examination for STD (sexually transmitted disease) REFERRED THINPREP PAP AND HPV (SO) Routine 01/05/2025 9:12 AM EST Encounter for gynecological examination without abnormal finding from Last 3 Months or Most Recently Relevant to Health Maintenance Results * HIV 1 & 2 Antibody/Antigen Screen (06/05/2025 4:20 PM EDT) HIV 1 & 2 Antibody/Antigen Screen Non Reactive Non Reactive 06/05/2025 7:10 PM EDT [facility] Comment:Screening for HIV 1 & 2 antibodies, and P24 antigen is NONREACTIVE. No confirmatory testing is required. Blood Venous blood specimen / Unknown Venipuncture / Unknown 06/05/2025 4:20 PM EDT 06/05/2025 6:25 PM EDT us Radha Velasquez APRN, CNJuan LAB BLOOD ORDERABLES Fi nal Result [facility] [address] [place] [address] * Hepatitis C Antibody w/Reflex to HCV Quant PCR (06/05/2025 4:20 PM EDT) Hepatitis C Antibody Negative Negative 06/05/2025 7:00 PM EDT [facility] Blood Venous blood specimen / Unknown Venipuncture / Unknown 06/05/2025 4:20 PM EDT 06/05/2025 6:25 PM EDT Radha Velasquez APRN, GLORIA LAB BLOOD ORDERABLES Fi nal Result [facility] [address] [place] [address] * (ABNORMAL) Referred ThinPrep Pap and HPV (SO) (01/05/2025 9:12 AM EST) Pap, Source Cx/Vagina 01/12/2025 9:23 PM EST [facility] EER Referred ThinPrep Pap and HPV See Note 01/12/2025 9:23 PM EST [facility] PAP, THINPREP Abnormal(A) 01/12/2025 9:23 PM EST [facility] High Risk HPV Abnormal(A) 01/12/2025 9:23 PM EST [facility] HPV Genotype Normal 01/12/2025 9:23 PM EST [facility] Swab Vaginal and cervical cytologic material / Unknown Non-blood Collection / Unknown 01/05/2025 9:12 AM EST 01/05/2025 12:52 PM EST Narrative [facility] - 01/12/2025 9:23 PM EST Authorized individuals can access the [facility] Enhanced Report with an [facility] Connect account using the following link. Your local lab can assist you in obtaining the patient report if you don't have a Connect account. [email or web address] Performed By: [facility] [address] [place] [id number] Last Pattern Grader: Oniel Ramirez MD, PhD CLIA Number: [id number] SPECIMEN PART A. Cervical, Endocervical, Vaginal, ThinPrep Pap (Managing Consultant Clinical Professor) CYTOLOGY HX Date of Last Menstrual Period: n FINAL DIAGNOSIS GENERAL CATEGORY: Abnormal INTERPRETATION: Low grade squamous intraepithelial lesion (LSIL). SPECIMEN ADEQUACY:Satisfactory for evaluation. Endocervical/transformation zone component present. Electronically Signed Out : Mulugeta Swanson MD Performed by: [facility] [address] [place] [address] [place] [address] Dasia Casey MD, HR-HPV: Positive Test performed by the FDA-approved [employer] (Gen-Probe) APTIMA HPV test, which detects HPV genotypes: 16, 18, 31, 33, 35, 39, 45, 51, 52, 56, 58, 59, 66, and 68. This assay has been cleared for the specimen types listed below. Other specimen types have not been validated for this assay. -Clinician-collected ThinPrep Pap specimens. Performed by: [facility] [address] [place] [address] [place] [address] Dasia Casey MD, HPV TYPE 16: Negative HPV TYPE 18/45: Negative Testing performed by the FDA-approved APTIMA HPV 16 18/45 Genotype Assay. This assay has been cleared for the specimen types listed below. Other specimen types have not been validated for this assay. -Clinician-collected ThinPrep Pap specimens. Performed by: [facility] [address] [place] [address] [place] [address] Dasia Casey MD, Tawnya Grande APRN LAB REF LAB BLOOD AND FLUID OR D Final Result [facility] [address] [place] [address] from Last 3 Months or Most Recently Relevant to Health Maintenance Insurance Sil [facility] [id number] [facility] Advance Directives * Full Code (Latest Code Status on File) Date Activated Date Inactivated Comments 07/25/2022 1:53 AM 07/26/2022 2:36 PM Question Answer Comments Patient has decision-making capacity? Yes Care Teams Creative Project Manager Relationship Specialty Start Date End Date Provider, Jahaira Gomez PCP - General 05/17/21
--- OUTSIDE RECORDS SUMMARY | 2025-09-14 13:29 | XMS_ITS | Encounter Summary ---
Author Organization Healthcare Address [address] [place] [address] Care Team Providers Care Director Asset Name Role Phone Provider, [facility] Primary Care Provid er Unavailable Encounter Details Date Type Department Care Team (Late st Contact Info) Description 08/31/2025 Telephone Obstetrics & Gynecology [address] [place] [address] Malick Godinez MD [address] [place] [address] Social History Tobacco Use Types Packs/Day Years Used Date Smoking Tobacco: Never Smokeless Tobacco: Never Alcohol Use Standard Drinks/Week Comments Not Currently 0 (1 standard drink = 0.6 oz pur e alcohol) PHQ-2 Answer Date Recorded Patient Health Questionnaire-2 Score 0 06/05/2025 [place] Depression Scale Answer Date Recorded [place] Depression Scale Total 2 01/06/2022 The thought [...] drink 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 Patientthinks her yeast infection may not have cleared up with the one dose of medication. Best contact number: [phone] (mobile) Optimal time of day to reach [...] will receive notification of the communication/outcome via [employer]. documented in this encounter Plan of Treatment Not on file documented as of this encounter Visit Diagnoses [...] documented as of this encounter Care Teams Director Asset Relationship Specialty Start Date End Date Provider, Jahaira Gomez PCP - General 05/17/21 documented as of this encounter
[2025-09-14 14:36] LABS: HCG Qualitative, Serum Negative (Negative)
== END 2025-09-14 23:59 | disposition home or self-care (01) ==
LOC: LAB 13:25
PROVIDERS: PCP Family Medicine; Visit Provider Nurse Practitioner
DX: Z32.01 Encounter for pregnancy test, result positive (principal)
CPT/HCPCS: 36415; 84703

== ENCOUNTER 2025-10-09 18:40 | Outpatient (CLI) | payer OTHER, SELFPAY ==
--- OUTSIDE RECORDS SUMMARY | 2025-10-10 14:08 | XMS_ITS | Clinical Summary ---
Author Organization [facility] Address [address] [place] [address] Care Team Providers Care Brine Mixer Operator Name Role Phone Provider, No Known Primary [...] Date/Time Associated Diagnosis Comments SCANNED - LABS 09/14/2025 from Last 3 Months Results * LABS SCANNED (09/14/2025) Chip Rivera MD LAB BLOOD ORDERABLES Fin al Result from Last 3 Months Insurance [employer] [place] [address] Advance Directives * CPR (Attempt to Resuscitate) (Latest Code Status on File) Date Activated Date Inactivated Comments 07/22/2022 4:33 PM 07/24/2022 10:34 AM Question Answer Comments Code Status (Patient has no pulse and is not breathing): CPR (Attempt to Resuscitate) Medical Interventions (Patie nt has pulse or is breathing): Full Support Care Teams Brine Mixer Operator Relationship Specialty Start Date End Date Provider, No Known [facility] [place] [address] PCP - General 06/08/19
[2025-10-13 01:08] LABS: Mycoplasma genitalium, NAA Negative (Negative); Neisseria gonorrhoeae, NAA Negative (Negative)
== END 2025-10-09 23:59 | disposition home or self-care (01) ==
LOC: LAB.DROPOF 10-10 14:04
PROVIDERS: PCP Family Medicine; Visit Provider Nurse Practitioner
DX: N89.8 Other specified noninflammatory disorders of vagina (principal)
CPT/HCPCS: 87491; 87563; 87591; 87661